=== PATIENT | male | born 1945 | race Caucasian/White ===

== ENCOUNTER 2017-03-17 06:49 | Day surgery (SDC) | payer MEDICARE, OTHER ==
[~2017-03-17 06:49] MED LIST: RINGER'S SOLUTION,LACTATED 1,000 ML IV PRN
[2017-03-17] MEDS ORDERED: RINGER'S SOLUTION,LACTATED 1,000 ML IV ONE (07:20)
[2017-03-17] MEDS ORDERED: PANTOPRAZOLE SODIUM 40 MG in NORMAL SALINE 100 ML IV ONE (08:11)
[2017-03-17] MEDS ORDERED: RINGER'S SOLUTION,LACTATED 1,000 ML IV PRN (08:11)
[2017-03-17] MEDS ORDERED: PANTOPRAZOLE SODIUM 40 MG/100 ML PIGGYBACK IV ONE (08:24)
--- NOTE | 2017-03-17 08:44 | OR ---
Operative Report - Dictated Report Narrative: Operative Report Date of operation: 03/17/2017 Preoperative diagnosis: Dysphagia. Odynophagia. Abnormal esophagram Postoperative diagnosis: Severe esophagitis. Gastropathy. Pathology CLOtest pending. Operation: EGD with biopsies Surgeon: Dr Berger Anesthesia: BONILLA CORTEZ CRNA Indications for procedure: The patient is a 71-year-old male referred by Dr. Gonzales. The patient has odynophagia and progressive dysphagia over solid foods. Esophagram demonstrates distal esophageal narrowing Findings: Severe erosive esophagitis beginning at 28 cm. No esophageal stenosis. Gastropathy. (Pathology and CLOtest pending) Narrative of procedure: The patient was identified preoperatively, and prior to the administration of anesthetic a multidisciplinary timeout was observed With the patient in the recumbent position, a bite-block was placed, intravenous sedation administered, and the patient's eyes covered with a towel. The flexible fiberoptic gastroscope was advanced into the posterior pharynx which appeared normal. The supraglottic larynx appeared normal. The cords appeared normal, moved well, and opposed in the midline. The scope was advanced under direct vision into the proximal esophagus which appeared normal. The esophagus appeared freely distensible with normal mucosa down to approximately 28 cm where severe circumferential erosive esophagitis with exudate was encountered. There was normal esophageal mucosa distal to this down to the gastroesophageal junction which was freely distensible. The scope was advanced into the stomach which was insufflated with air. There was pain and gastric erythema with significant erythema on several gastric folds. A retroflex view of the gastric fundus revealed no additional lesions but did show the irritated mucosa well. The pylorus appeared patent. The scope was advanced into the duodenal bulb which appeared normal. The scope was advanced further to the horizontal portion of the duodenum which appeared normal, specifically the villous architecture appeared well preserved and clear bile was present. The scope was slowly withdrawn through the duodenal bulb with confirmation that no active ulcer was present. The scope was withdrawn into the stomach and financial sales representative biopsies of gastric mucosa obtained for CLOtest and pathology. The biopsy sites were seen to be hemostatic. The insufflated air was removed from the stomach, and the scope withdrawn into the esophagus and biopsies were obtained from the areas of erosive esophagitis. Biopsy sites were seen to be hemostatic. The scope was withdrawn from the patient, and the procedure terminated. The patient tolerated the anesthetic and procedure well without complication and was transferred back to the ambulatory surgery area awake and in stable condition. The patient remained stable throughout a period of postoperative observation, was able to tolerate po intake, and was up without assistance. I shared the operative findings with him and his , and he was given copies of the photographs which appear in the medical record. He was given a single dose of Protonix 40 mg IV prior to discharge. He was discharged home with instructions not to engage in hazardous activity today, but may return to normal activity tomorrow and advance diet as tolerated. He is to continue medications as listed in the history and physical exam, specifically he is to resume Coumadin today with a recheck of his INR on 03/20/2017. I made arrangements to contact the patient with the biopsy reports and will make further recommendation based upon that result. Reviewed and electronically signed
[2017-03-17 09:11] VITALS: BP 147/60
== END 2017-03-17 06:50 | disposition home or self-care (01) ==
LOC: AMB 06:49
PROVIDERS: ATTEND Surgery
PROC: 0DB68ZX Excision of Stomach, Via Natural or Artificial Opening Endoscopic, Diagnostic (ICD-10-PCS; 2017-03-17)
PROC: 0DB58ZX Excision of Esophagus, Via Natural or Artificial Opening Endoscopic, Diagnostic (ICD-10-PCS; principal; 2017-03-17 07:30)
DX: K21.0 Gastro-esophageal reflux disease with esophagitis (principal); K29.70 Gastritis, unspecified, without bleeding; E11.22 Type 2 diabetes mellitus with diabetic chronic kidney disease; I12.9 Hypertensive chronic kidney disease with stage 1 through stage 4 chronic kidney disease, or unspecified chronic kidney disease; N18.3 Chronic kidney disease, stage 3 (moderate); E78.5 Hyperlipidemia, unspecified; I48.91 Unspecified atrial fibrillation; G47.33 Obstructive sleep apnea (adult) (pediatric); Z87.11 Personal history of peptic ulcer disease; E66.9 Obesity, unspecified; Z68.34 Body mass index [BMI] 34.0-34.9, adult

== ENCOUNTER 2018-01-13 12:33 | Inpatient (IN) | payer MEDICARE, OTHER ==
[2018-01-13 13:33] LABS: Hematocrit 26.5 % (42.0-52.0); Hemoglobin 8.5 gm/dL (13.5-18.0); Mean Corpuscular Hemoglobin 30.8 pg (27-31); Mean Corpuscular Hgb Conc 32.1 g/dl (32-36); Mean Platelet Volume 9.8 fl (8-11.3); Neutrophil # 9.7 K/mm3 (1.3-6.0); Neutrophil % 86.7 % (42-75.0); Platelet Count 254 K/mm3 (150-450); Red Blood Count 2.76 M/mm3 (4.7-6.0); Red Cell Distribution Width 15.9 % (11.5-14.0); White Blood Count 11.2 K/mm3 (4.0-10.5)
[2018-01-13 13:44] LABS: BUN/Creatinine Ratio 17.5 (9.0-21.6)
[2018-01-13 13:45] LABS: Anion Gap 11.4 mmol/L (6.8-13.8); Bilirubin, Total 0.8 mg/dL (0.0-1.1); Ca. Corrected For Albumin 9.7 mg/dL (8.4-10.2); Calcium * 8.4 mg/dL (7.9-10.9); Carbon Dioxide 28.1 mmol/L (24-32.6); Potassium 4.5 mmol/L (3.4-4.6); Total Protein 6.7 gm/dL (6.2-8.2)
[2018-01-13] MEDS ORDERED: SENNOSIDES/DOCUSATE SODIUM 1 TAB TABLET PO PRN (14:08)
[2018-01-13] MEDS: BISACODYL 10 MG SUPP.RECT RC SCH (16:29)
[2018-01-13] MEDS: POLYETHYLENE GLYCOL 3350 119 GM BTL PO SCH (16:29)
[2018-01-13 17:01] LABS: Prothrombin Time (Patient) 38.6 Seconds (9.0-11.0)
[2018-01-13 17:12] LABS: INR 3.81 INR (0.90-1.10)
[2018-01-13] MEDS: INSULIN LISPRO 100 UNITS/ML VIAL SC SCH (17:23)
--- NOTE | 2018-01-13 19:28 | PN ---
Dictated Progress Note - Date and Time Seen: Date: 01/13/18 Time: 19:27 - Progress Note Narrative: Vital Signs - Last Taken Temp 37.3 C 01/13/18 14:04 Pulse 88 01/13/18 14:32 Resp 19 01/13/18 14:04 BP 154/66 H 01/13/18 14:04 Pulse Ox 99 01/13/18 14:04 Abnormal/Pending Laboratory Last 24 HRS 01/13/18 01/13/18 01/13/18 16:30 12:51 12:51 WBC 11.2 H RBC 2.76 L Hgb 8.5 L Hct 26.5 L RDW 15.9 H Immature Gran % (Auto) 0.50 H Immature Gran # (Auto) 0.06 H Neutrophils % 86.7 H Lymphocytes % 5.5 L Neutrophils # 9.7 H Lymphocytes # 0.61 L PT 38.6 H INR (Anticoag Therapy) 3.81 H BUN 33 H D Creatinine 1.89 H D Est GFR (Non-Af Amer) 38 L D Random Glucose 120 H Albumin 2.0 L The patient has an unused gastrostomy tube. I was delayed in the operating room until after the patient been put back to bed and he is currently sleeping. His records were reviewed. I will examine the patient in the morning regarding removal of the tube.
[2018-01-13] MEDS ORDERED: ALBUTEROL SULFATE/IPRATROPIUM 3 ML NEBU IH PRN (20:32)
[2018-01-13] MEDS ORDERED: NITROGLYCERIN 0.4 MG/TAB BTL SL PRN (20:32)
[2018-01-13] MEDS ORDERED: ALPRAZolam 0.25 MG TABLET PO PRN (20:32)
[2018-01-13] MEDS ORDERED: POLYVINYL ALCOHOL 150 DROP BTL OP PRN (20:32)
[2018-01-13] MEDS ORDERED: CALCIUM CARBONATE 500 MG TAB.CHEW PO PRN (20:32)
--- NOTE | 2018-01-13 20:32 | HP ---
Chief Complaint - Chief Complaint Date of Service: 01/13/18 Time of Service: 15:00 Chief Complaint: SOB, chest pain, low grade fever, confusion History of Present Illness: The patient presented to my office today to see me in clinic on multiple generalized symptoms including shortness of breath, fever (low-grade), confusion, lethargy. The patient had a three-vessel CABG on 10/26/2016 at the [facility]. He unfortunately had an extremely difficult postoperative recovery which included tracheostomy and PEG tube placement. At this time, his tracheostomy has previously been decannulated although his PEG tube still remains. His PEG tube has not been used in approximately 4 weeks. After his admission at [facility] [place] [facility] he was transferred to an LTAC where he stayed for a few weeks before being transferred to [place] for acute inpatient rehabilitation. He was discharged from acute inpatient rehabilitation and transferred to [facility] in [place], [place] on 01/11/2018. Medical History (Last Reviewed 01/13/18 @ 15:11 by Paola Hammer RN) Left lower lobe pneumonia (Acute) GERD (gastroesophageal reflux disease) (Chronic) Atrial fibrillation (Chronic) Coronary artery disease (Acute) Pneumonia Atrial fibrillation Onset Date: 03/15/12 [facility], started on Coumadin today. CKD stage 3 due to type 2 diabetes mellitus Onset Date: 12/03/15 Diabetes Onset Date: ~1995 Type 2 Diabetic macular edema Onset Date: Unknown Diabetic retinopathy Onset Date: ~2008 Essential hypertension Onset Date: ~1995 GERD (gastroesophageal reflux disease) Onset Date: 04/20/17 Heart disease Onset Date: ~1969 Szszn-Jmfrwvpnl-Azoul syndrome Hyperlipidemia Onset Date: ~1995 Hypertension Obesity (BMI 30.0-34.9) Onset Date: 12/03/15 Class I Peptic ulcer disease Onset Date: ~1995 Sleep apnea Onset Date: 01/24/16 Qekvn-Qtksqpqzi-Ijxil syndrome Onset Date: ~1972 Longstanding hx of palpitations with questionable remote hx of WPW. Pt apparently was enrolled in a WPW research study at the [facility] but details/records are N/A. 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 He denies ever having any ablation procedure. Cataract, bilateral Dupuytren's contracture Onset Date: ~1995 Surgical History: Surgical History (Last Reviewed 01/13/18 @ 15:11 by Paola Hammer RN) S/P triple vessel bypass (Chronic) History of esophagogastroduodenoscopy (EGD) (Resolved) w/biopsy. 1995 Dr. Jonnathan COLON. 03/17/17 Dr. Berger - Harley negative. Esophagitis,gastritis. History of detached retina repair (Resolved) 1999 History of cardioversion 2011 History of echocardiogram 10/09/15 Normal LV size. Severe concentric LVH. Low normal LV systolic function with EF 54%. No RWMA. Normal RV side. Normal RV systolic function. No significant valvular abnormalities. History of stress test 06/2015 [facility] - mod-sized inferior wall and small apical perfusion defects, both reversible on rest images, consistent with ischemia. EF 60%. Hx of cataract surgery 2008 right; 2009 left Hx of colonoscopy 08/01/11 Dr. Berger - dillon S/P triple vessel bypass Onset Date: 10/26/17 with complications; diaylysis, trach Family History: Family History (Last Reviewed 01/13/18 @ 15:11 by Paola Hammer RN) Father , Age 73 Heart disease CHF (congestive heart failure) Diabetes IDDM Mother , Age 70 Peritonitis Toxic shock syndrome After abdominal surgery Brother Diabetes IDDM Cancer Renal. Lost 1 kidney. Social History: Patient Lives[place]Resources [facility] [place] Utilized Occupation Retired Preferred Language Vincentian Smoking Status Never smoker Have you smoked in the past 12 No months Abuse History No History of abuse Psych History No pertinent hx Review Of Systems (GEN) - Review of Systems Generalized/Overall Review: Present: Weakness, Chills, Fever, Fatigue EENTM: Present: No Symptoms Reported Respiratory: Present: Cough, Shortness of Breath Cardiac: Present: Edema Abdominal: Present: Nausea, Vomiting Genitourinary: Present: No Symptoms Reported Skin: Present: Other Misc: All systems neg except as marked Immunizations: IMMUNIZATION HX Immunizations Up to Date Yes History of Influenza Vaccine Yes Hx Pneumococcal Vaccination Yes Allergies/Adverse Reactions: Allergies Allergy/AdvReac Type Severity Reaction Status Date / Time simvastatin AdvReac Mild extreme Verified 01/13/18 15:11 body aches Home Medications: HOME MEDICATIONS Docusate Sodium [Colace] 100 mg PO BID 12/12/15 [Last Taken 01/13/18 07:00] Nitroglycerin [Nitrostat] 0.4 mg SUBLINGUAL [id number] PRN 12/12/15 [Last Taken Unknown] Atorvastatin Calcium [Lipitor] 40 mg PO DAILY 03/06/17 [Last Taken 01/12/18 20:00] Aspirin [Aspirin Enteric Coated] 81 mg PO DAILY 03/16/17 [Last Taken 01/13/18 07:00] Insulin NPH Human Recom [Novolin N] 50 unit SQ BID 03/16/17 [Last Taken Unknown] Insulin Regular Human Rec [Novolin R] 20 units SQ DAILY 03/16/17 [Last Taken Unknown] Multivitamins [Multivitamin Emory] 1 cap PO DAILY 03/16/17 [Last Taken Unknown] Warfarin Sodium [Coumadin] 2.5 mg PO DAILY 03/16/17 [Last Taken 01/12/18 17:00] Insulin Lispro [Humalog] See Protocol SQ ACHS 01/13/18 [Last Taken Unknown] acetaminophen 325 mg tablet 650 mg PO Q4H PRN tab 01/13/18 [Last Taken Unknown] alprazolam 0.25 mg tablet 0.25 mg PO Q6H PRN tab 01/13/18 [Last Taken Unknown] amiodarone 200 mg tablet 200 mg PO DAILY 01/13/18 [Last Taken 01/13/18 07:00] calcium carbonate 200 mg calcium (500 mg) chewable tablet 200 mg PO TID tab 01/13/18 [Last Taken 01/13/18 07:00] carboxymethylcellulose sodium 0.5 % eye drops 1 drp OP TID PRN 01/13/18 [Last Taken Unknown] escitalopram 20 mg tablet 10 mg PO DAILY 01/13/18 [Last Taken 01/13/18 07:00] famotidine 20 mg tablet 20 mg PO BID 01/13/18 [Last Taken 01/13/18 07:00] furosemide 40 mg tablet 40 mg PO DAILY 01/13/18 [Last Taken 01/13/18 07:00] guaifenesin ER 1,200 mg tablet, extended release 12 hr 1,200 mg PO Q12H 01/13/18 [Last Taken 01/13/18 07:00] insulin glargine (U- 100) 100 unit/mL subcutaneous solution 20 unit SUBCUT QAM ml 01/13/18 [Last Taken 01/13/18 07:00] insulin lispro protamine-lispro 100 unit/mL (50-50) subcutaneous pen 5 unit SUBCUT .COMPLEX 10/17/18 [Last Taken Unknown] ipratropium-albuterol 0.5 mg-3 mg(2.5 mg base)/3 mL nebulization soln 3 ml IH Q2H PRN 01/13/18 [Last Taken Unknown] ketorolac 0.5 % eye drops 1 drp OP QID 01/13/18 [Last Taken 01/13/18 12:00] levothyroxine 25 mcg capsule 25 mcg PO DAILY 01/13/18 [Last Taken 01/13/18 07:00] metoprolol tartrate 25 mg tablet 25 mg PO BID 01/13/18 [Last Taken 01/13/18 07:00] ondansetron HCl 4 mg tablet 4 mg PO DAILY 01/13/18 [Last Taken 01/12/18 17:00] ondansetron HCl 4 mg tablet 4 mg PO Q6H PRN 01/13/18 [Last Taken Unknown] oxymetazoline 0.05 % nasal spray 2 spray KARLIE Q12H PRN 01/13/18 [Last Taken Unknown] pantoprazole 40 mg tablet,delayed release 40 mg PO DAILY 01/13/18 [Last Taken 01/13/18 07:00] potassium chloride ER 10 mEq tablet,extended release(part/cryst) 10 meq PO DAILY 01/13/18 [Last Taken 01/13/18 07:00] sennosides 8.6 mg tablet 8.6 mg PO BID PRN 01/13/18 [Last Taken Unknown] tamsulosin 0.4 mg capsule 0.4 mg PO DAILY 01/13/18 [Last Taken 01/13/18 07:00] tramadol 50 mg tablet 50 mg PO Q6H PRN 01/13/18 [Last Taken Unknown] Exam - Exam Vital Signs: Vital Signs - Last Taken Temp 37.3 C 01/13/18 14:04 Pulse 88 01/13/18 14:32 Resp 19 01/13/18 14:04 BP 154/66 H 01/13/18 14:04 Pulse Ox 99 01/13/18 14:04 Constitutional: Present: Alert, Cooperative, Other - Appears uncomfortable, acute on chronically ill, confused ENT Exam: Present: hearing grossly normal, moist mucous membranes Eye Exam: bilateral eye: conjunctivae pale Back Exam: Present: no CVA tenderness Respiratory: Present: other - Coarse breath sounds bilaterally Cardiovascular/Chest: Present: irregularly irregular Abdomen: Present: soft, nontender, other - PEG tub present with serosang and purluent drainage, hypoactive Extremity: Present: lower extremity edema - 2+ edema left>right Skin Exam: Present: pallor, other - Sternotomy incision with surrounding erythema, area of erythema outlined on admission, increased warmth over the area as well, no fluctuance or open areas appreciated Neurologic: Present: other - Tremors, downward nystagmus, upper and lower extremity weakness Eye contact: Present: cooperative Diagnostic Studies: Abnormal Lab Results 01/13/18 01/13/18 01/13/18 Range/Units 12:51 12:51 16:30 WBC 11.2 H (4.0-10.5) K/mm3 RBC 2.76 L (4.7-6.0) M/mm3 Hgb 8.5 L (13.5-18.0) gm/dL Hct 26.5 L (42.0-52.0) % RDW 15.9 H (11.5-14.0) % Immature Gran % (Auto) 0.50 H (0.001-0.429) % Immature Gran # (Auto) 0.06 H (0.000-0.0310) K/mm3 Neutrophils % 86.7 H (42-75.0) % Lymphocytes % 5.5 L (20-51) % Neutrophils # 9.7 H (1.3-6.0) K/mm3 Lymphocytes # 0.61 L (1.5-3.5) k/mm3 PT 38.6 H (9.0-11.0) Seconds INR (Anticoag Therapy) 3.81 H (0.90-1.10) INR BUN 33 H D (6-23) mg/dL Creatinine 1.89 H D (0.4-1.4) mg/dL Est GFR (Non-Af Amer) 38 L D (60-130) mL/min Random Glucose 120 H (70-110) mg/dL Albumin 2.0 L (3.4-5.0) gm/dl Laboratory Results WBC 11.2 K/mm3 (4.0-10.5) H 01/13/18 12:51 RBC 2.76 M/mm3 (4.7-6.0) L 01/13/18 12:51 Hgb 8.5 gm/dL (13.5-18.0) L 01/13/18 12:51 Hct 26.5 % (42.0-52.0) L 01/13/18 12:51 MCV 96.0 fl (78-100) 01/13/18 12:51 MCH 30.8 pg (27-31) 01/13/18 12:51 MCHC 32.1 g/dl (32-36) 01/13/18 12:51 RDW 15.9 % (11.5-14.0) H 01/13/18 12:51 Plt Count 254 K/mm3 (150-450) 01/13/18 12:51 MPV 9.8 fl (8-11.3) 01/13/18 12:51 Immature Gran % (Auto) 0.50 % (0.001-0.429) H 01/13/18 12:51 Immature Gran # (Auto) 0.06 K/mm3 (0.000-0.0310) H 01/13/18 12:51 Neutrophils % 86.7 % (42-75.0) H 01/13/18 12:51 Lymphocytes % 5.5 % (20-51) L 01/13/18 12:51 Monocytes % 6.6 % (0.0-9) 01/13/18 12:51 Eosinophils % 0.3 % (0.0-3.0) 01/13/18 12:51 Basophils % 0.4 % (0.0-1.0) 01/13/18 12:51 Nucleated RBC % 0.0 k/mm3 (0-1) 01/13/18 12:51 Neutrophils # 9.7 K/mm3 (1.3-6.0) H 01/13/18 12:51 Lymphocytes # 0.61 k/mm3 (1.5-3.5) L 01/13/18 12:51 Monocytes # 0.7 k/mm3 (0.0-1.0) 01/13/18 12:51 Eosinophils # 0.0 k/mm3 (0.0-0.7) 01/13/18 12:51 Absolute Basophils 0.0 k/mm3 (0.0-0.1) 01/13/18 12:51 PT 38.6 Seconds (9.0-11.0) H 01/13/18 16:30 INR (Anticoag Therapy) 3.81 INR (0.90-1.10) H 01/13/18 16:30 Sodium 133 mmol/L (132-142) 01/13/18 12:51 Plasma Sodium 133 mmol/L (130-142) 01/13/18 12:51 Potassium 4.5 mmol/L (3.4-4.6) 01/13/18 12:51 Chloride 98 mmol/L (97-106) 01/13/18 12:51 Carbon Dioxide 28.1 mmol/L (24-32.6) 01/13/18 12:51 Anion Gap 11.4 mmol/L (6.8-13.8) 01/13/18 12:51 BUN 33 mg/dL (6-23) H D 01/13/18 12:51 Creatinine 1.89 mg/dL (0.4-1.4) H D 01/13/18 12:51 Est GFR (Non-Af Amer) 38 mL/min (60-130) L D 01/13/18 12:51 BUN/Creatinine Ratio 17.5 (9.0-21.6) 01/13/18 12:51 Random Glucose 120 mg/dL (70-110) H 01/13/18 12:51 Calcium 8.4 mg/dL (7.9-10.9) 01/13/18 12:51 Calcium Adj for Albumin 9.7 mg/dL (8.4-10.2) 01/13/18 12:51 Total Bilirubin 0.8 mg/dL (0.0-1.1) 01/13/18 12:51 AST 26 U/L (0-48) 01/13/18 12:51 ALT 20 U/L (19-67) 01/13/18 12:51 Alkaline Phosphatase 67 U/L (50-170) 01/13/18 12:51 Total Protein 6.7 gm/dL (6.2-8.2) 01/13/18 12:51 Albumin 2.0 gm/dl (3.4-5.0) L 01/13/18 12:51 Procalcitonin 0.16 ng/mL (0.05-0.50) 01/13/18 12:51 Assessment/Plan - Narrative Narrative: Direct admit from my office. I'm not sure exactly what is going on with the patient nor am I sure the precise etiology of all his signs and symptoms on presentation. Further evaluation and workup ordered including chest x-ray, UA with culture if indicated, CBC, CMP, proalcitonin, BNP, blood cultures 2. Erythema surrounding sternotomy wound outlined on admission. Consult placed to address healing buttock pressure wound as well. General surgery consulted to address PEG tube to see if we can completely discontinue it and pull it. Hold off on antibiotics for now as we're not determined whether the patient truly has an infection and if he does what the source is. Await results of workup and further recommendations and orders pending results. - Assessment/Plan (1) Confusion Problem: Acute (2) S/P CABG (coronary artery bypass graft) Problem: Chronic
[2018-01-13] MEDS ORDERED: FUROSEMIDE 10 MG/ML VIAL IV ONE (21:23)
[2018-01-13] MEDS ORDERED: ROSUVASTATIN CALCIUM 10 MG TABLET ONE (21:39)
[2018-01-13] MEDS: RANITIDINE HCL 15 MG/ML BTL PO SCH (21:46)
[2018-01-13] MEDS: METOPROLOL TARTRATE 25 MG TABLET PO SCH (21:48)
[2018-01-13] MEDS: ROSUVASTATIN CALCIUM 20 MG TABLET PO SCH (21:49)
[2018-01-13] MEDS: KETOROLAC TROMETHAMINE OP SCH (21:55)
[2018-01-13] MEDS: SENNOSIDES/DOCUSATE SODIUM 1 TAB TABLET PO SCH (22:36)
[2018-01-14] MEDS: IRON SUCROSE COMPLEX 100 MG in NORMAL SALINE 100 ML IV SCH ×2 (00:02→22:23)
[2018-01-14 01:50] LABS: Urine Bilirubin Negative (NEGATIVE); Urine Blood 250 /ul (NEGATIVE); Urine Ketone Negative (NEGATIVE); Urine Nitrite Negative (NEGATIVE); Urine Protein Negative (NEGATIVE); Urine Urobilinogen Normal (NORMAL)
[2018-01-14 01:59] LABS: Urine Amorphous Sediment Few - 1+ (NONE-FEW); Urine Appearance Slightly Cloudy (CLEAR); Urine Bacteria 2+; Urine Color Yellow
[2018-01-14 05:32] LABS: Hematocrit 26.2 % (42.0-52.0); Hemoglobin 8.3 gm/dL (13.5-18.0); Mean Cell Volume 95.3 fl (78-100); Mean Corpuscular Hemoglobin 30.2 pg (27-31); Mean Corpuscular Hgb Conc 31.7 g/dl (32-36); Mean Platelet Volume 9.4 fl (8-11.3); Neutrophil # 8.1 K/mm3 (1.3-6.0); Neutrophil % 81.7 % (42-75.0); Platelet Count 246 K/mm3 (150-450); Red Blood Count 2.75 M/mm3 (4.7-6.0)
[2018-01-14 05:45] LABS: Prothrombin Time (Patient) 41.5 Seconds (9.0-11.0)
[2018-01-14 05:49] LABS: INR 4.09 INR (0.90-1.10)
[2018-01-14 05:52] LABS: Albumin * 1.9 gm/dl (3.4-5.0); Anion Gap 7.7 mmol/L (6.8-13.8); BUN/Creatinine Ratio 17.8 (9.0-21.6); Bilirubin, Total 0.8 mg/dL (0.0-1.1); CKMB 1.4 ng/mL (0.0-9.0); Ca. Corrected For Albumin 9.9 mg/dL (8.4-10.2); Calcium * 8.5 mg/dL (7.9-10.9); Carbon Dioxide 30.3 mmol/L (24-32.6); Total Protein 6.4 gm/dL (6.2-8.2)
[2018-01-14 05:53] LABS: Troponin I 0.018 ng/mL (0.00-0.10)
[2018-01-14] MEDS ORDERED: LEVOTHYROXINE SODIUM 25 MCG TABLET PO SCH (07:00)
[2018-01-14] MEDS: INSULIN LISPRO 100 UNITS/ML VIAL SC SCH ×3 (07:15→17:40)
[2018-01-14] MEDS: LEVOTHYROXINE SODIUM 75 MCG TABLET PO SCH (08:09)
[2018-01-14] MEDS ORDERED: BUMETANIDE 0.25 MG/ML VIAL IV PRN (08:45)
[2018-01-14] MEDS ORDERED: INSULIN GLARGINE,HUM.REC.ANLOG 100 UNITS/ML VIAL SC SCH (09:00)
[2018-01-14] MEDS ORDERED: ESCITALOPRAM OXALATE 10 MG TAB PO SCH (09:00)
[2018-01-14] MEDS ORDERED: FUROSEMIDE 40 MG TABLET PO SCH (09:00)
[2018-01-14] MEDS ORDERED: WARFARIN SODIUM 5 MG TABLET PO SCH (09:00)
[2018-01-14] MEDS ORDERED: AMIODARONE HCL 200 MG TABLET PO SCH (09:00)
[2018-01-14] MEDS: SENNOSIDES/DOCUSATE SODIUM 1 TAB TABLET PO SCH ×3 (10:16→17:37)
[2018-01-14] MEDS: BUMETANIDE 0.25 MG/ML VIAL IV SCH (10:16)
[2018-01-14] MEDS: PANTOPRAZOLE SODIUM 40 MG TABLET.EC PO SCH (10:17)
[2018-01-14] MEDS: POTASSIUM CHLORIDE 10 MEQ TABLET.SA PO SCH (10:17)
[2018-01-14] MEDS: ASPIRIN 81 MG TABLET.DR PO SCH (10:17)
[2018-01-14] MEDS: FERROUS SULFATE 325 MG TABLET PO SCH ×3 (10:17→17:35)
[2018-01-14] MEDS: MULTIVITAMINS 1 CAP CAPSULE PO SCH (10:17)
[2018-01-14] MEDS: METOPROLOL TARTRATE 25 MG TABLET PO SCH ×2 (10:18→20:12)
[2018-01-14] MEDS: KETOROLAC TROMETHAMINE OP SCH ×4 (10:27→20:14)
[2018-01-14] MEDS: RANITIDINE HCL 15 MG/ML BTL PO SCH ×2 (10:28→20:13)
[2018-01-14] MEDS: POLYETHYLENE GLYCOL 3350 119 GM BTL PO SCH (10:30)
[2018-01-14] MEDS: INSULIN DETEMIR 100 UNITS/ML VIAL SC SCH ×2 (10:31→22:02)
[2018-01-14] MEDS: BISACODYL 10 MG SUPP.RECT RC SCH (13:31)
--- NOTE | 2018-01-14 15:01 | CONS ---
HPI - General Date of Service: 01/14/18 Source: patient Exam Limitations: no limitations - History of Present Illness Initial Comments: Patient is a 72 year old male, recently admitted to the hospital due to left lower lobe pneumonia. [facility] regarding multiple ulcers, located on the left toe, left lower leg and right buttock. The patient's medical history includes, atrial fibrillation, chronic kidney disease stage III, coronary artery disease, type II diabetes, hypertension, GERD, hyperlipidemia and sleep apnea. He states he underwent a triple bypass in September 2017, and was in a coma for two months following the procedure. The patient is unclear of his current residence. Regarding the ulcers, the patient states that he is unsure of how or when the toe ulcer appeared. He is unclear of the duration of the toe and buttock ulcers. He denies difficulty with non-healing ulcers in the past. Timing/Duration: other - several months Allergies/Adverse Reactions: Allergies simvastatin Adverse Reaction (Mild, Verified 01/13/18 15:11) extreme body aches Home Medications: Home Medications Medication Instructions Recorded Last Taken Docusate Sodium [Colace] 100 mg PO BID 12/12/15 01/13/18 07:00 Nitroglycerin [Nitrostat] 0.4 mg SUBLINGUAL [id number] PRN 12/12/15 Unknown Atorvastatin Calcium [Lipitor] 40 mg PO DAILY 03/06/17 01/12/18 20:00 Aspirin [Aspirin Enteric Coated] 81 mg PO DAILY 03/16/17 01/13/18 07:00 Insulin NPH Human Recom [Novolin N] 50 unit SQ BID 03/16/17 Unknown Insulin Regular Human Rec [Novolin 20 units SQ DAILY 03/16/17 Unknown R] Multivitamins [Multivitamin Emory] 1 cap PO DAILY 03/16/17 Unknown Warfarin Sodium [Coumadin] 2.5 mg PO DAILY 03/16/17 01/12/18 17:00 Insulin Lispro [Humalog] See Protocol SQ ACHS 01/13/18 Unknown acetaminophen 325 mg tablet 650 mg PO Q4H PRN tab 01/13/18 Unknown alprazolam 0.25 mg tablet 0.25 mg PO Q6H PRN tab 01/13/18 Unknown amiodarone 200 mg tablet 200 mg PO DAILY 01/13/18 01/13/18 07:00 calcium carbonate 200 mg calcium 200 mg PO TID tab 01/13/18 01/13/18 07:00 (500 mg) chewable tablet carboxymethylcellulose sodium 0.5 1 drp OP TID PRN 01/13/18 Unknown % eye drops escitalopram 20 mg tablet 10 mg PO DAILY 01/13/18 01/13/18 07:00 famotidine 20 mg tablet 20 mg PO BID 01/13/18 01/13/18 07:00 furosemide 40 mg tablet 40 mg PO DAILY 01/13/18 01/13/18 07:00 guaifenesin ER 1,200 mg tablet, 1,200 mg PO Q12H 01/13/18 01/13/18 07:00 extended release 12 hr insulin glargine (U- 100) 100 20 unit SUBCUT QAM ml 01/13/18 01/13/18 07:00 unit/mL subcutaneous solution insulin lispro protamine-lispro 5 unit SUBCUT .COMPLEX 01/13/18 Unknown 100 unit/mL (50-50) subcutaneous pen ipratropium-albuterol 0.5 mg-3 3 ml IH Q2H PRN 01/13/18 Unknown mg(2.5 mg base)/3 mL nebulization soln ketorolac 0.5 % eye drops 1 drp OP QID 01/13/18 01/13/18 12:00 levothyroxine 25 mcg capsule 25 mcg PO DAILY 01/13/18 01/13/18 07:00 metoprolol tartrate 25 mg tablet 25 mg PO BID 01/13/18 01/13/18 07:00 ondansetron HCl 4 mg tablet 4 mg PO DAILY 01/13/18 01/12/18 17:00 ondansetron HCl 4 mg tablet 4 mg PO Q6H PRN 01/13/18 Unknown oxymetazoline 0.05 % nasal spray 2 spray KARLIE Q12H PRN 01/13/18 Unknown pantoprazole 40 mg tablet,delayed 40 mg PO DAILY 01/13/18 01/13/18 07:00 release potassium chloride ER 10 mEq 10 meq PO DAILY 01/13/18 01/13/18 07:00 tablet,extended release(part/cryst) sennosides 8.6 mg tablet 8.6 mg PO BID PRN 01/13/18 Unknown tamsulosin 0.4 mg capsule 0.4 mg PO DAILY 01/13/18 01/13/18 07:00 tramadol 50 mg tablet 50 mg PO Q6H PRN 01/13/18 Unknown Procedures Colonoscopy (07/31/10) Excision of Esophagus, Via Natural or Artificial Opening Endoscopic, Diagnostic (03/17/17) Excision of Stomach, Via Natural or Artificial Opening Endoscopic, Diagnostic (03/17/17) Repair Left Hand Skin, External Approach (02/22/15) Medications - Medications Current Medications: Current Medications Amiodarone HCl (Cordarone) 200 mg PO DAILY [facility] Stop: 02/13/18 09:01 Last Admin: 01/14/18 10:17 Dose: 200 mg Aspirin (Aspirin Enteric Coated) 81 mg PO DAILY [facility] Stop: 02/13/18 09:01 Last Admin: 01/14/18 10:17 Dose: 81 mg Bisacodyl (Dulcolax Suppository) 10 mg RC DAILY [facility] Stop: 02/12/18 15:31 Last Admin: 01/14/18 13:31 Dose: Not Given Bumetanide (Bumex) 1 mg IV ONCE PRN PRN Reason: GIVE AFTER UNIT OF PRBCs Stop: 02/13/18 08:46 Last Admin: 01/14/18 14:06 Dose: 1 mg Bumetanide (Bumex) 1 mg IV DAILY [facility] Stop: 02/13/18 09:01 Last Admin: 01/14/18 10:16 Dose: 1 mg Escitalopram Oxalate (Lexapro) 10 mg PO DAILY [facility] Stop: 02/13/18 09:01 Last Admin: 01/14/18 10:18 Dose: 10 mg Ferrous Sulfate (Ferrous Sulfate) 325 mg PO TIDWM [facility]RAHIMA Stop: 02/13/18 09:01 Last Admin: 01/14/18 13:31 Dose: 325 mg Iron Sucrose 100 mg/ Sodium (Chloride) 105 mls @ 200 mls/hr IV HS [facility] Stop: 02/12/18 22:01 Last Infusion: 01/14/18 00:34 Dose: Infused Ceftriaxone Sodium 1,000 mg/ (Dextrose/Water) 100 mls @ 200 mls/hr IV Q24H [facility]; Protocol Stop: 02/13/18 07:01 Last Infusion: 01/14/18 08:36 Dose: Infused Insulin Detemir (Levemir) 8 units SC Q12H [facility]RAHIMA Stop: 02/13/18 09:01 Last Admin: 01/14/18 10:31 Dose: 8 units Insulin Human Lispro (Humalog) 0 units SC ACINS [facility]; Protocol Stop: 02/12/18 17:01 Last Admin: 01/14/18 12:33 Dose: 2 units Ketorolac Tromethamine (Acular) 1 drop OP QID [facility]IM[facility] Stop: 02/12/18 21:01 Last Admin: 01/14/18 13:32 Dose: 1 drop Levothyroxine Sodium (Synthroid) 75 mcg PO DAILY@0700 [facility] Stop: 02/13/18 07:01 Last Admin: 01/14/18 08:09 Dose: 75 mcg Metoprolol Tartrate (Lopressor) 25 mg PO BID [facility] Stop: 02/12/18 21:01 Last Admin: 01/14/18 10:18 Dose: 25 mg Multivitamins/Folic Acid (Multivitamin Emory) 1 cap PO DAILY [facility] Stop: 02/13/18 09:01 Last Admin: 01/14/18 10:17 Dose: 1 cap Pantoprazole Sodium (Protonix) 40 mg PO DAILY [facility] Stop: 02/13/18 09:01 Last Admin: 01/14/18 10:17 Dose: 40 mg Polyethylene Glycol (Miralax) 17 gm PO DAILY [facility] Stop: 02/12/18 15:31 Last Admin: 01/14/18 10:30 Dose: 17 gm Potassium Chloride (Klor-Con 10) 10 meq PO DAILY [facility] Stop: 02/13/18 09:01 Last Admin: 01/14/18 10:17 Dose: 10 meq Ranitidine HCl (Zantac) 150 mg PO BID [facility] Stop: 02/12/18 21:01 Last Admin: 01/14/18 10:28 Dose: 150 mg Rosuvastatin Calcium (Crestor) 20 mg PO HS [facility]RAHIM[facility] Stop: 02/12/18 21:01 Last Admin: 01/13/18 21:49 Dose: 20 mg Senna/Docusate Sodium (Senokot-S) 1 tab PO TID [facility]RAHIMA Stop: 02/12/18 21:46 Last Admin: 01/14/18 13:31 Dose: 1 tab Review of Systems - Review of Systems Narrative: patient is drowsy, and does not answer questions readily. review of systems was difficult. Physical Examination - Exam Vital Signs: Vital Signs - Last Taken Temp 36.7 C 01/14/18 13:57 Pulse 83 01/14/18 13:57 Resp 16 01/14/18 13:57 BP 109/59 01/14/18 13:57 Pulse Ox 98 01/14/18 13:57 O2 Oxygen Delivery Method Room Air Comprehensive Narative: 01/15/18 10:15 patient is sleepy, frequently stops mid sentence and falls back to sleep. ENT Exam: Present: hearing grossly normal Skin Exam: Present: other - the area on the left toe measures ~0.5cm in circumference. large amount of yellow necrosis. small amount of red granulation tissue. no erythema. minimal drainage. the ulcer is currently open to air. the area on the left lower leg measures ~ 1cm in length. completely covered in black escar. no drainage. no erythema or induration. the area on the right buttock is ~ 1.3cm in circumference. reddned, blanchable. no open wound, no drainage. no erythema. - Results and Findings: Lab/Microbiology results last 24 hrs: Abnormal/Pending Laboratory Last 24 HRS 01/14/18 01/14/18 01/14/18 09:09 05:26 05:26 RBC 2.75 L Hgb 8.3 L Hct 26.2 L MCHC 31.7 L RDW 16.0 H Immature Gran % (Auto) 0.50 H Immature Gran # (Auto) 0.05 H Neutrophils % 81.7 H Lymphocytes % 8.4 L Neutrophils # 8.1 H Lymphocytes # 0.84 L PT INR (Anticoag Therapy) BUN Creatinine Est GFR (Non-Af Amer) ALT B-Natriuretic Peptide Albumin Procalcitonin Less than 0.05 L Urine Blood Ur Leukocyte Esterase Urine RBC Urine WBC Urine Bacteria Urine Comment Crossmatch See Detail 01/14/18 01/14/18 01/14/18 05:26 05:26 01:40 RBC Hgb Hct MCHC RDW Immature Gran % (Auto) Immature Gran # (Auto) Neutrophils % Lymphocytes % Neutrophils # Lymphocytes # PT 41.5 H INR (Anticoag Therapy) 4.09 H* BUN 31 H Creatinine 1.74 H Est GFR (Non-Af Amer) 41 L ALT 17 L B-Natriuretic Peptide 90634 H Albumin 1.9 L Procalcitonin Urine Blood 250 H Ur Leukocyte Esterase 75 H Urine RBC 10-25 H Urine WBC 10-25 H Urine Bacteria 2+ H Urine Comment Culture ordered L Crossmatch 01/13/18 16:30 RBC Hgb Hct MCHC RDW Immature Gran % (Auto) Immature Gran # (Auto) Neutrophils % Lymphocytes % Neutrophils # Lymphocytes # PT 38.6 H INR (Anticoag Therapy) 3.81 H BUN Creatinine Est GFR (Non-Af Amer) ALT B-Natriuretic Peptide Albumin Procalcitonin Urine Blood Ur Leukocyte Esterase Urine RBC Urine WBC Urine Bacteria Urine Comment Crossmatch Culture 01/13/18 13:07 Blood Culture - Preliminary Blood NO GROWTH 24 HOURS 01/13/18 12:51 Blood Culture - Preliminary Blood NO GROWTH 24 HOURS 01/13/18 16:30 - Final Nares MRSA Negative - Assessments/Findings (1) Ulcer of lower extremity Diagnosis(s): Due to the amount of necrosis present, recommend using Santyl to the ulcers on the left toe and left lower leg. This will be covered with gauze and secured with tape. The dressings will be changed daily, and the areas washed with soap and water at dressing changes. The buttock ulcer is not opened. Recommend excellent off-loading of the area. The left leg ulcers may benefit from sharps debridement in the future. Thank you for this consult, we would be happy to follow the patient as an out patient. Problem: Acute (2) Diabetic ulcer of toe of left foot Problem: Acute Qualifiers: Diabetes mellitus type: type 2 Non-pressure ulcer stage: limited to breakdown of skin Qualified Code(s): E11.621 - Type 2 diabetes mellitus with foot ulcer; L97.521 - Non-pressure chronic ulcer of other part of left foot limited to breakdown of skin (3) Stage I pressure ulcer of right buttock Problem: Acute (4) Ulcer of left lower leg Problem: Acute Qualifiers: Non-pressure ulcer stage: unspecified non-pressure ulcer stage Qualified Code(s): L97.929 - Non-pressure chronic ulcer of unspecified part of left lower leg with unspecified severity
[2018-01-14 16:17] LABS: Hematocrit 28.7 % (42.0-52.0); Hemoglobin 9.4 gm/dL (13.5-18.0)
[2018-01-14] MEDS: ACETAMINOPHEN 325 MG TABLET PO PRN (17:32)
--- NOTE | 2018-01-14 18:08 | PN ---
Subjective - Date and Time Seen Date: 01/14/18 Time: 09:30 Subjective Narrative: The patient states he feels about the same as he did yesterday when he was admitted. No new issues or concerns per patient. Objective - Review of Systems Generalized/Overall Review: Reports: Weakness, Fatigue Respiratory: Reports: Cough, Shortness of Breath Cardiac: Reports: Edema Abdominal: Reports: Nausea, Vomiting Misc: All systems neg except as marked - Vitals Vitals: Last Vital Signs Temp 37.4 C 01/14/18 17:00 Pulse 92 01/14/18 17:00 Resp 16 01/14/18 17:00 BP 143/68 01/14/18 17:00 Pulse Ox 91 L 01/14/18 17:00 - Abnormal Lab Findings Abnormal Lab Findings: Abnormal Lab Results 01/14/18 01/14/18 01/14/18 Range/Units 01:40 05:26 05:26 RBC (4.7-6.0) M/mm3 Hgb (13.5-18.0) gm/dL Hct (42.0-52.0) % MCHC (32-36) g/dl RDW (11.5-14.0) % Immature Gran % (Auto) (0.001-0.429) % Immature Gran # (Auto) (0.000-0.0310) K/mm3 Neutrophils % (42-75.0) % Lymphocytes % (20-51) % Neutrophils # (1.3-6.0) K/mm3 Lymphocytes # (1.5-3.5) k/mm3 PT 41.5 H (9.0-11.0) Seconds INR (Anticoag Therapy) 4.09 H* (0.90-1.10) INR BUN 31 H (6-23) mg/dL Creatinine 1.74 H (0.4-1.4) mg/dL Est GFR (Non-Af Amer) 41 L (60-130) mL/min ALT 17 L (19-67) U/L B-Natriuretic Peptide 18565 H (5-350) pg/mL Albumin 1.9 L (3.4-5.0) gm/dl Procalcitonin (0.05-0.50) ng/mL Urine Blood 250 H (NEGATIVE) /ul Ur Leukocyte Esterase 75 H (NEGATIVE) /ul Urine RBC 10-25 H (0-5) /hpf Urine WBC 10-25 H (0-5) /hpf Urine Bacteria 2+ H (NONE) Urine Comment Culture ordered L Crossmatch 01/14/18 01/14/18 01/14/18 Range/Units 05:26 05:26 09:09 RBC 2.75 L (4.7-6.0) M/mm3 Hgb 8.3 L (13.5-18.0) gm/dL Hct 26.2 L (42.0-52.0) % MCHC 31.7 L (32-36) g/dl RDW 16.0 H (11.5-14.0) % Immature Gran % (Auto) 0.50 H (0.001-0.429) % Immature Gran # (Auto) 0.05 H (0.000-0.0310) K/mm3 Neutrophils % 81.7 H (42-75.0) % Lymphocytes % 8.4 L (20-51) % Neutrophils # 8.1 H (1.3-6.0) K/mm3 Lymphocytes # 0.84 L (1.5-3.5) k/mm3 PT (9.0-11.0) Seconds INR (Anticoag Therapy) (0.90-1.10) INR BUN (6-23) mg/dL Creatinine (0.4-1.4) mg/dL Est GFR (Non-Af Amer) (60-130) mL/min ALT (19-67) U/L B-Natriuretic Peptide (5-350) pg/mL Albumin (3.4-5.0) gm/dl Procalcitonin Less than 0.05 L (0.05-0.50) ng/mL Urine Blood (NEGATIVE) /ul Ur Leukocyte Esterase (NEGATIVE) /ul Urine RBC (0-5) /hpf Urine WBC (0-5) /hpf Urine Bacteria (NONE) Urine Comment Crossmatch See Detail 01/14/18 Range/Units 16:04 RBC (4.7-6.0) M/mm3 Hgb 9.4 L (13.5-18.0) gm/dL Hct 28.7 L (42.0-52.0) % MCHC (32-36) g/dl RDW (11.5-14.0) % Immature Gran % (Auto) (0.001-0.429) % Immature Gran # (Auto) (0.000-0.0310) K/mm3 Neutrophils % (42-75.0) % Lymphocytes % (20-51) % Neutrophils # (1.3-6.0) K/mm3 Lymphocytes # (1.5-3.5) k/mm3 PT (9.0-11.0) Seconds INR (Anticoag Therapy) (0.90-1.10) INR BUN (6-23) mg/dL Creatinine (0.4-1.4) mg/dL Est GFR (Non-Af Amer) (60-130) mL/min ALT (19-67) U/L B-Natriuretic Peptide (5-350) pg/mL Albumin (3.4-5.0) gm/dl Procalcitonin (0.05-0.50) ng/mL Urine Blood (NEGATIVE) /ul Ur Leukocyte Esterase (NEGATIVE) /ul Urine RBC (0-5) /hpf Urine WBC (0-5) /hpf Urine Bacteria (NONE) Urine Comment Crossmatch - Exam Constitutional: Present: Alert, Oriented x3, Cooperative ENT Exam: Present: hearing grossly normal, moist mucous membranes Respiratory: Present: other - Coarse breath sounds, left>right Cardiovascular/Chest: Present: irregularly irregular Abdomen: Present: soft, nontender, nondistended, other - PEG tube present, hypoactive Extremity: Present: lower extremity edema - left>right Skin Exam: Present: other - Sternotomy incision with surrounding erythema, area of erythema outlined on admission, increased warmth over the area as well, overall erythema improved since admission Neurologic: Present: alert, oriented x 3, other - Tremors, downward nystagmus, upper and lower extremity weakness Appearance: Present: appropriate appearance, appropriate insight, neat, no memory impairment Eye contact: Present: cooperative, good eye contact, normal speech Thoughts: Present: normal thought pattern, no apparent hallucination Assessment/Plan Plan Narrative: Continue current antibiotics. Continue IV diuresis with IV Bumex. Strict I&O. Daily standing weight. PT evaluation and treatment. - Problems/Diagnosis (1) Heart failure, diastolic, with acute decompensation Problem: Acute (2) Wound infection after surgery Problem: Acute (3) Atrial fibrillation Problem: Chronic Qualifiers: Atrial fibrillation type: chronic Qualified Code(s): I48.2 - Chronic atrial fibrillation (4) S/P CABG (coronary artery bypass graft) Problem: Chronic (5) S/P triple vessel bypass Problem: Chronic (6) Amiodarone toxicity Problem: Suspected (7) UTI (urinary tract infection) Problem: Acute
[2018-01-14] MEDS: ROSUVASTATIN CALCIUM 20 MG TABLET PO SCH (20:12)
[2018-01-14] MEDS ORDERED: CARVEDILOL 3.125 MG TABLET PO SCH (21:00)
[2018-01-15 05:31] LABS: Hematocrit 28.1 % (42.0-52.0); Hemoglobin 9.1 gm/dL (13.5-18.0); Mean Corpuscular Hemoglobin 30.4 pg (27-31); Mean Corpuscular Hgb Conc 32.4 g/dl (32-36); Mean Platelet Volume 9.2 fl (8-11.3); Neutrophil # 7.8 K/mm3 (1.3-6.0); Neutrophil % 80.5 % (42-75.0); Platelet Count 266 K/mm3 (150-450); Red Blood Count 2.99 M/mm3 (4.7-6.0); Red Cell Distribution Width 15.9 % (11.5-14.0); White Blood Count 9.7 K/mm3 (4.0-10.5)
[2018-01-15 05:50] LABS: Anion Gap 8.7 mmol/L (6.8-13.8); BUN/Creatinine Ratio 18.1 (9.0-21.6); Calcium * 8.6 mg/dL (7.9-10.9); Estimated Creat Clear 43.7; Potassium 3.7 mmol/L (3.4-4.6)
[2018-01-15] MEDS: INSULIN LISPRO 100 UNITS/ML VIAL SC SCH ×3 (06:41→17:18)
[2018-01-15] MEDS: LEVOTHYROXINE SODIUM 75 MCG TABLET PO SCH (06:45)
[2018-01-15 08:54] LABS: Prothrombin Time (Patient) 35.4 Seconds (9.0-11.0)
[2018-01-15 08:56] LABS: INR 3.5 INR (0.90-1.10)
[2018-01-15] MEDS: KETOROLAC TROMETHAMINE OP SCH ×4 (09:29→23:01)
[2018-01-15] MEDS: ASPIRIN 81 MG TABLET.DR PO SCH (09:31)
[2018-01-15] MEDS: BISACODYL 10 MG SUPP.RECT RC SCH (09:31)
[2018-01-15] MEDS: FERROUS SULFATE 325 MG TABLET PO SCH ×3 (09:32→16:19)
[2018-01-15] MEDS: POTASSIUM CHLORIDE 10 MEQ TABLET.SA PO SCH (09:32)
[2018-01-15] MEDS: METOPROLOL TARTRATE 25 MG TABLET PO SCH ×2 (09:32→23:05)
[2018-01-15] MEDS: MULTIVITAMINS 1 CAP CAPSULE PO SCH (09:33)
[2018-01-15] MEDS: POLYETHYLENE GLYCOL 3350 119 GM BTL PO SCH (09:33)
[2018-01-15] MEDS: RANITIDINE HCL 15 MG/ML BTL PO SCH ×2 (09:34→23:17)
[2018-01-15] MEDS: PANTOPRAZOLE SODIUM 40 MG TABLET.EC PO SCH (09:34)
[2018-01-15] MEDS: SENNOSIDES/DOCUSATE SODIUM 1 TAB TABLET PO SCH ×3 (09:34→16:19)
[2018-01-15] MEDS: BUMETANIDE 0.25 MG/ML VIAL IV SCH ×2 (09:41→23:21)
[2018-01-15] MEDS: INSULIN DETEMIR 100 UNITS/ML VIAL SC SCH ×2 (09:45→23:20)
[2018-01-15] MEDS: SERTRALINE HCL 50 MG TABLET PO SCH (09:46)
[2018-01-15] MEDS: COLLAGENASE CLOSTRIDIUM HIST. 30 APPL TUBE TP SCH (09:50)
[2018-01-15] MEDS: ACETAMINOPHEN 325 MG TABLET PO PRN ×3 (10:00→23:15)
[2018-01-15] MEDS ORDERED: ONDANSETRON HCL/PF 2 MG/ML VIAL IV ONE (11:41)
[2018-01-15] MEDS ORDERED: ONDANSETRON HCL/PF 2 MG/ML VIAL ONE (11:44)
[2018-01-15] MEDS ORDERED: WARFARIN SODIUM 1 TAB TAB PO SCH (17:00)
[2018-01-15] MEDS: ONDANSETRON HCL/PF 2 MG/ML VIAL IV PRN (22:29)
[2018-01-15] MEDS: ROSUVASTATIN CALCIUM 20 MG TABLET PO SCH (23:04)
[2018-01-15] MEDS: IRON SUCROSE COMPLEX 100 MG in NORMAL SALINE 100 ML IV SCH (23:23)
[2018-01-16] MEDS: ONDANSETRON HCL/PF 2 MG/ML VIAL IV PRN ×2 (04:45→09:48)
[2018-01-16 05:45] LABS: Hematocrit 29.3 % (42.0-52.0); Hemoglobin 9.3 gm/dL (13.5-18.0); Mean Cell Volume 92.7 fl (78-100); Mean Corpuscular Hemoglobin 29.4 pg (27-31); Mean Corpuscular Hgb Conc 31.7 g/dl (32-36); Mean Platelet Volume 9.1 fl (8-11.3); Neutrophil # 8.3 K/mm3 (1.3-6.0); Neutrophil % 79.9 % (42-75.0); Platelet Count 322 K/mm3 (150-450); Red Blood Count 3.16 M/mm3 (4.7-6.0); Red Cell Distribution Width 15.8 % (11.5-14.0); White Blood Count 10.4 K/mm3 (4.0-10.5)
[2018-01-16 06:00] LABS: Prothrombin Time (Patient) 29.8 Seconds (9.0-11.0)
[2018-01-16 06:03] LABS: INR 2.95 INR (0.90-1.10)
[2018-01-16 06:11] LABS: Anion Gap 7.8 mmol/L (6.8-13.8); BUN/Creatinine Ratio 17.6 (9.0-21.6); Calcium * 8.4 mg/dL (7.9-10.9); Carbon Dioxide 28.8 mmol/L (24-32.6); Estimated Creat Clear 45.7; Potassium 3.6 mmol/L (3.4-4.6)
[2018-01-16] MEDS: INSULIN LISPRO 100 UNITS/ML VIAL SC SCH (06:21)
[2018-01-16] MEDS: LEVOTHYROXINE SODIUM 75 MCG TABLET PO SCH (06:26)
[2018-01-16] MEDS: ACETAMINOPHEN 325 MG TABLET PO PRN (06:49)
[2018-01-16] MEDS: COLLAGENASE CLOSTRIDIUM HIST. 30 APPL TUBE TP SCH (08:47)
[2018-01-16] MEDS: KETOROLAC TROMETHAMINE OP SCH (08:47)
--- NOTE | 2018-01-16 10:03 | PN ---
Subjective - Date and Time Seen Date: 01/16/18 Time: 10:00 Subjective Narrative: The patient admits to pain over the top of his sternal incision. Overnight, the area opened after nursing wiped the area. The area is now draining. Objective - Review of Systems Generalized/Overall Review: Reports: Weakness, Fatigue Abdominal: Reports: Nausea, Vomiting Musculoskeletal Complaints: Reports: Other - upper sternum pain located over open area Skin: Reports: Other - Redness and pain around sternotomy incision Misc: All systems neg except as marked - Vitals Vitals: Last Vital Signs Temp 36.3 C 01/16/18 06:41 Pulse 87 01/16/18 06:41 Resp 16 01/16/18 06:41 BP 155/83 H 01/16/18 06:41 Pulse Ox 98 01/16/18 06:41 - Abnormal Lab Findings Abnormal Lab Findings: Abnormal Lab Results 01/16/18 01/16/18 01/16/18 Range/Units 05:40 05:40 05:40 RBC 3.16 L (4.7-6.0) M/mm3 Hgb 9.3 L (13.5-18.0) gm/dL Hct 29.3 L (42.0-52.0) % MCHC 31.7 L (32-36) g/dl RDW 15.8 H (11.5-14.0) % Immature Gran % (Auto) 0.80 H (0.001-0.429) % Immature Gran # (Auto) 0.08 H (0.000-0.0310) K/mm3 Neutrophils % 79.9 H (42-75.0) % Lymphocytes % 9.7 L (20-51) % Neutrophils # 8.3 H (1.3-6.0) K/mm3 Lymphocytes # 1.01 L (1.5-3.5) k/mm3 PT 29.8 H (9.0-11.0) Seconds INR (Anticoag Therapy) 2.95 H (0.90-1.10) INR BUN 27 H (6-23) mg/dL Creatinine 1.53 H (0.4-1.4) mg/dL Est GFR (Non-Af Amer) 48 L (60-130) mL/min Random Glucose 140 H D (70-110) mg/dL B-Natriuretic Peptide 53112 H (5-350) pg/mL - Exam Constitutional: Present: Alert, Oriented x3, Cooperative, Well developed, Well nourished, No distress ENT Exam: Present: normal ENT inspection, hearing grossly normal, moist mucous membranes Respiratory: Present: other - Coarse breath sounds bilaterally left>right Cardiovascular/Chest: Present: irregularly irregular Abdomen: Present: soft, nontender, nondistended, other - PEG tube present, hypoactive Extremity: Present: lower extremity edema - 2+ edema left>right Skin Exam: Present: other - Sternotomy incision with surrounding erythema, area of erythema outlined on admission, increased warmth over the area as well, now with 1-2cm circular open area at the superior aspect of the incision with active purulent drainage Neurologic: Present: alert, oriented x 3, other - Tremors, downward nystagmus, generalized upper and lower extremity weakness Appearance: Present: appropriate appearance, appropriate insight, neat, no memory impairment Eye contact: Present: cooperative, good eye contact, normal speech Thoughts: Present: normal thought pattern, no apparent hallucination Assessment/Plan Plan Narrative: Patient will be transferred to [facility] for ongoing management of his sternotomy incision/wound infection. Please see discharge summary from today's date for further information. - Problems/Diagnosis (1) Wound infection after surgery Problem: Acute (2) Amiodarone toxicity Problem: Suspected (3) S/P CABG (coronary artery bypass graft) Problem: Chronic (4) S/P triple vessel bypass Problem: Chronic
[2018-01-16] MEDS: ASPIRIN 81 MG TABLET.DR PO SCH (10:10)
[2018-01-16] MEDS: FERROUS SULFATE 325 MG TABLET PO SCH (10:10)
[2018-01-16] MEDS: MULTIVITAMINS 1 CAP CAPSULE PO SCH (10:11)
[2018-01-16] MEDS: POTASSIUM CHLORIDE 10 MEQ TABLET.SA PO SCH (10:11)
[2018-01-16] MEDS: INSULIN DETEMIR 100 UNITS/ML VIAL SC SCH (10:11)
[2018-01-16] MEDS: POLYETHYLENE GLYCOL 3350 119 GM BTL PO SCH (10:11)
[2018-01-16] MEDS: METOPROLOL TARTRATE 25 MG TABLET PO SCH (10:11)
[2018-01-16] MEDS: PANTOPRAZOLE SODIUM 40 MG TABLET.EC PO SCH (10:12)
[2018-01-16] MEDS: RANITIDINE HCL 15 MG/ML BTL PO SCH (10:12)
[2018-01-16] MEDS: SENNOSIDES/DOCUSATE SODIUM 1 TAB TABLET PO SCH (10:12)
[2018-01-16] MEDS: SERTRALINE HCL 50 MG TABLET PO SCH (10:12)
[2018-01-16] MEDS: BUMETANIDE 0.25 MG/ML VIAL IV SCH (10:17)
[2018-01-16] MEDS: BISACODYL 10 MG SUPP.RECT RC SCH (10:23)
[2018-01-16 11:13] VITALS: BP 141/69
[2018-01-16] MEDS ORDERED: POLYVINYL ALCOHOL 150 DROP BTL OP PRN (11:15)
--- NOTE | 2018-01-25 16:11 | PN ---
Dictated Progress Note - Date and Time Seen: Date: 01/14/18 Time: 08:00 - Progress Note Narrative: Vital Signs - Last Taken Temp Pulse Resp BP Pulse Ox The patient was interviewed and examined. His was present. He has a gastrostomy tube which appears to be an initial mushroom PEG tube. The site appears healthy. The tube is not currently being used. The patient's INR is over 4 today, so the tube should not be removed at this time.
--- NOTE | 2018-02-01 11:53 | DS ---
Transfer Discharge Summary - Diagnosis(s)/Problems (1) Wound infection after surgery Problem: Acute (2) Amiodarone toxicity Problem: Suspected (3) S/P CABG (coronary artery bypass graft) Problem: Chronic (4) S/P triple vessel bypass Problem: Chronic - Course Description of Stay: ADMISSION DATE: 01/13/2018 TRANSFER DISCHARGE DATE: 01/16/2018 ADMISSION HPI: The patient presented to my office today to see me in clinic on multiple generalized symptoms including shortness of breath, fever (low-grade), confusion, lethargy. The patient had a three-vessel CABG on 10/26/2016 at the [facility]. He unfortunately had an extremely difficult postoperative recovery which included tracheostomy and PEG tube placement. At this time, his tracheostomy has previously been decannulated although his PEG tube still remains. His PEG tube has not been used in approximately 4 weeks. After his admission at [facility] he was transferred to an LTAC where he stayed for a few weeks before being transferred to [place] for acute inpatient rehabilitation. He was discharged from acute inpatient rehabilitation and transferred to [facility] in [place], [place] on 01/11/2018. HOSPITAL COURSE: The patient was found to have a sternotomy incision wound infection that opened up with active purulent drainage from the open wound on 01/16 and the patient was transferred to [facility] for further management by his cardiothoracic physician and team. The patient was transferred in fair but stable condition. Procedures Performed: none - Medications Medications: Active Medications Discontinued Medications Acetaminophen (Tylenol) 650 mg PO Q4H PRN PRN Reason: Mild Pain or Fever > 100.4F Stop: 02/12/18 14:09 Last Admin: 01/16/18 06:49 Dose: 650 mg Amiodarone HCl (Cordarone) 200 mg PO DAILY [facility] Stop: 02/13/18 09:01 Last Admin: 01/14/18 10:17 Dose: 200 mg Aspirin (Aspirin Enteric Coated) 81 mg PO DAILY [facility] Stop: 02/13/18 09:01 Last Admin: 01/16/18 10:10 Dose: Not Given Bisacodyl (Dulcolax Suppository) 10 mg RC DAILY [facility] Stop: 02/12/18 15:31 Last Admin: 01/16/18 10:23 Dose: 10 mg Bumetanide (Bumex) 1 mg IV ONCE PRN PRN Reason: GIVE AFTER UNIT OF PRBCs Stop: 02/13/18 08:46 Last Admin: 01/14/18 14:06 Dose: 1 mg Bumetanide (Bumex) 1 mg IV DAILY [facility] Stop: 02/13/18 09:01 Last Admin: 01/15/18 09:41 Dose: 1 mg Bumetanide (Bumex) 1 mg IV BID [facility] Stop: 02/14/18 21:01 Last Admin: 01/16/18 10:17 Dose: 1 mg Collagenase (Santyl) 1 appl TP DAILY [facility] Stop: 02/14/18 09:01 Last Admin: 01/16/18 08:47 Dose: 1 appl Escitalopram Oxalate (Lexapro) 10 mg PO DAILY [facility] Stop: 02/13/18 09:01 Last Admin: 01/14/18 10:18 Dose: 10 mg Ferrous Sulfate (Ferrous Sulfate) 325 mg PO TIDWM [facility] Stop: 02/13/18 09:01 Last Admin: 01/16/18 10:10 Dose: Not Given Furosemide (Lasix) 40 mg IV ONCE ONE Stop: 01/13/18 21:24 Last Admin: 01/13/18 21:49 Dose: 40 mg Iron Sucrose 100 mg/ Sodium (Chloride) 105 mls @ 200 mls/hr IV HS [facility] Stop: 02/12/18 22:01 Last Infusion: 01/15/18 23:55 Dose: Infused Ceftriaxone Sodium 1,000 mg/ (Dextrose/Water) 100 mls @ 200 mls/hr IV Q24H [facility]; Protocol Stop: 02/13/18 07:01 Last Infusion: 01/16/18 07:02 Dose: Infused Insulin Detemir (Levemir) 8 units SC Q12H [facility] Stop: 02/13/18 09:01 Last Admin: 01/16/18 10:11 Dose: Not Given Insulin Human Lispro (Humalog) 0 units SC ACINS [facility]; Protocol Stop: 02/12/18 17:01 Last Admin: 01/16/18 06:21 Dose: Not Given Ketorolac Tromethamine (Acular) 1 drop OP QID [facility] Stop: 02/12/18 21:01 Last Admin: 01/16/18 08:47 Dose: 1 drop Levothyroxine Sodium (Synthroid) 75 mcg PO DAILY@0700 [facility] Stop: 02/13/18 07:01 Last Admin: 01/16/18 06:26 Dose: 75 mcg Metoprolol Tartrate (Lopressor) 25 mg PO BID [facility] Stop: 02/12/18 21:01 Last Admin: 01/16/18 10:11 Dose: Not Given Multivitamins/Folic Acid (Multivitamin Emory) 1 cap PO DAILY [facility] Stop: 02/13/18 09:01 Last Admin: 01/16/18 10:11 Dose: Not Given Ondansetron HCl (Zofran) 4 mg IV ONCE ONE Stop: 01/15/18 11:42 Last Admin: 01/15/18 11:47 Dose: 4 mg Ondansetron HCl (Zofran) 4 mg IV Q6H PRN PRN Reason: Nausea And Vomiting Stop: 02/14/18 22:23 Last Admin: 01/16/18 09:48 Dose: 4 mg Pantoprazole Sodium (Protonix) 40 mg PO DAILY [facility] Stop: 02/13/18 09:01 Last Admin: 01/16/18 10:12 Dose: Not Given Polyethylene Glycol (Miralax) 17 gm PO DAILY [facility] Stop: 02/12/18 15:31 Last Admin: 01/16/18 10:11 Dose: Not Given Potassium Chloride (Klor-Con 10) 10 meq PO DAILY [facility] Stop: 02/13/18 09:01 Last Admin: 01/16/18 10:11 Dose: Not Given Ranitidine HCl (Zantac) 150 mg PO BID [facility] Stop: 02/12/18 21:01 Last Admin: 01/16/18 10:12 Dose: Not Given Rosuvastatin Calcium (Crestor) 20 mg PO HS [facility] Stop: 02/12/18 21:01 Last Admin: 01/15/18 23:04 Dose: 20 mg Senna/Docusate Sodium (Senokot-S) 1 tab PO TID [facility] Stop: 02/12/18 21:46 Last Admin: 01/16/18 10:12 Dose: Not Given Sertraline HCl (Zoloft) 50 mg PO DAILY [facility] Stop: 02/14/18 09:01 Last Admin: 01/16/18 10:12 Dose: Not Given Warfarin Sodium (Coumadin (Per Pharmacy)) 0 tab PO DAILY@1700 [facility] Stop: 02/14/18 17:01 Last Admin: 01/15/18 16:35 Dose: Not Given - Disposition Disposition: Short Term Hospital Inpatient Condition: Fair Discharge Date: 01/16/18 Discharge Time: 15:00
--- NOTE | 2018-02-01 12:02 | PN ---
Subjective - Date and Time Seen Date: 01/15/18 Time: 11:30 Subjective Narrative: Patient seen and examined at bedside. No acute issues overnight. Patient denies any new issues or concerns this AM. Objective - Review of Systems Generalized/Overall Review: Reports: Weakness, Fatigue Respiratory: Reports: Cough, Shortness of Breath Cardiac: Reports: Edema Abdominal: Reports: Nausea, Vomiting Misc: All systems neg except as marked - Vitals Vitals: Last Vital Signs Temp 36.2 C 01/16/18 11:12 Pulse 88 01/16/18 11:12 Resp 16 01/16/18 11:12 BP 141/69 01/16/18 11:12 Pulse Ox 97 01/16/18 11:12 - Exam Constitutional: Present: Alert, Oriented x3, Cooperative, No distress ENT Exam: Present: moist mucous membranes Respiratory: Present: other - Coarse breath sounds left>right Cardiovascular/Chest: Present: irregularly irregular Abdomen: Present: soft, nontender, nondistended, other - PEG tube present, hypoactive Extremity: Present: lower extremity edema - left>right Skin Exam: Present: pallor, other - Sternotomy incision with surrounding delmis thema, area of erythema outlined on admission, increased warmth over the area as well, fluctuance appreciated over superior aspect of incision, no open wounds, no drainage Neurologic: Present: alert, oriented x 3, other - Tremors, downward nystagmus, upper and lower extremity weakness Appearance: Present: appropriate appearance, appropriate insight, neat, no memory impairment Eye contact: Present: cooperative, good eye contact, normal speech Thoughts: Present: normal thought pattern, no apparent hallucination Assessment/Plan Plan Narrative: I have asked to have wound care return to see the patient to evaluate his sternotomy incision as there is now an area of fluctuance over the superior aspect of the incision. Overall, erythema around incision has improved since admission. Continue antibiotics for now and await wound team input. - Problems/Diagnosis (1) Wound infection after surgery Problem: Acute (2) Amiodarone toxicity Problem: Suspected (3) S/P CABG (coronary artery bypass graft) Problem: Chronic (4) S/P triple vessel bypass Problem: Chronic
== END 2018-01-16 11:59 | disposition short-term general hospital (02) | DRG 194 ==
LOC: CCFAL → LAB 12:33 → MS 14:01
PROVIDERS: ADMIT Internal Medicine; ATTEND Internal Medicine
DX: Z79.82 Long term (current) use of aspirin; E11.621 Type 2 diabetes mellitus with foot ulcer; L97.929 Non-pressure chronic ulcer of unspecified part of left lower leg with unspecified severity; R11.2 Nausea with vomiting, unspecified; N18.3 Chronic kidney disease, stage 3 (moderate); Z79.01 Long term (current) use of anticoagulants; G47.30 Sleep apnea, unspecified; E78.5 Hyperlipidemia, unspecified; I25.10 Atherosclerotic heart disease of native coronary artery without angina pectoris; E66.9 Obesity, unspecified; J18.1 Lobar pneumonia, unspecified organism; R41.0 Disorientation, unspecified; L89.311 Pressure ulcer of right buttock, stage 1; Z68.30 Body mass index [BMI] 30.0-30.9, adult; E11.311 Type 2 diabetes mellitus with unspecified diabetic retinopathy with macular edema; K21.9 Gastro-esophageal reflux disease without esophagitis; Z95.1 Presence of aortocoronary bypass graft; E11.22 Type 2 diabetes mellitus with diabetic chronic kidney disease; I12.9 Hypertensive chronic kidney disease with stage 1 through stage 4 chronic kidney disease, or unspecified chronic kidney disease; L97.521 Non-pressure chronic ulcer of other part of left foot limited to breakdown of skin; I45.6 Pre-excitation syndrome; I48.2 Chronic atrial fibrillation; Z93.1 Gastrostomy status; Z79.4 Long term (current) use of insulin
CPT/HCPCS: 36415; 71010; 71020; 71045; 71046; 74000; 74018; 80048; 80053; 81001; 82306; 82550; 82553; 82607; 82746; 83036; 83519; 83540; 83550; 83735; 83880; 84145; 84439; 84443; 84481; 84484; 85014; 85018; 85025; 85610; 86850; 86900; 87040; 87070; 87077; 87081; 87086; 87186; 93005; 94660; 97162; 97166; 99214; J1756; J2405; P9016

== ENCOUNTER 2018-06-16 15:34 | Inpatient (IN) ==
[2018-06-16] MEDS ORDERED: NORMAL SALINE 1,000 ML IV ONE (15:51)
[2018-06-16] MEDS ORDERED: ACETAMINOPHEN 1,000 MG/100 ML BTL IV ONE (15:52)
[2018-06-16 16:08] LABS: Hematocrit 28.7 % (42.0-52.0); Hemoglobin 9.3 gm/dL (13.5-18.0); Mean Cell Volume 94.1 fl (78-100); Mean Corpuscular Hemoglobin 30.5 pg (27-31); Mean Corpuscular Hgb Conc 32.4 g/dl (32-36); Mean Platelet Volume 9.3 fl (8-11.3); Neutrophil # 9.4 K/mm3 (1.3-6.0); Platelet Count 200 K/mm3 (150-450); Red Blood Count 3.05 M/mm3 (4.7-6.0); Red Cell Distribution Width 15.6 % (11.5-14.0); White Blood Count 10.9 K/mm3 (4.0-10.5)
[2018-06-16 16:16] LABS: INR 1.78 INR (0.92-1.08); Prothrombin Time (Patient) 17.2 Seconds (9.1-10.7)
[2018-06-16 16:27] LABS: Albumin * 2.9 gm/dl (3.4-5.0); Anion Gap 15.1 mmol/L (6.8-13.8); BUN/Creatinine Ratio 23.1 (9.0-21.6); Bilirubin, Total 0.9 mg/dL (0.0-1.1); Ca. Corrected For Albumin 9.3 mg/dL (8.4-10.2); Calcium * 8.7 mg/dL (7.9-10.9); Carbon Dioxide 25.2 mmol/L (24-32.6); Potassium 4.3 mmol/L (3.4-4.6); Total Protein 7.1 gm/dL (6.2-8.2)
[2018-06-16 16:28] LABS: Troponin I 1.309 ng/mL (0.00-0.10)
[2018-06-16] MEDS ORDERED: cefTRIAXone SODIUM 1,000 MG/100 ML BAG IV ONE (16:40)
[2018-06-16] MEDS ORDERED: AZITHROMYCIN 500 MG in DEXTROSE 5 % IN WATER 250 ML IV ONE ×2 (17:30)
--- NOTE | 2018-06-16 17:49 | ERNOTE ---
Medical Problem HPI - Narrative Date of Service: 06/16/18 - General Chief Complaint: Fever Time Seen by Provider: 06/16/18 15:42 Source: patient, family Exam Limitations: no limitations - Immun/Allergies/Home Medications Immunizations: IMMUNIZATION HX Immunizations Up to Date Yes History of Influenza Vaccine Yes Hx Pneumococcal Vaccination Yes Allergies/Adverse Reactions: Allergies simvastatin Adverse Reaction (Mild, Verified 06/16/18 15:52) extreme body aches Home Medications: HOME MEDICATIONS Nitroglycerin [Nitrostat] 0.4 mg SUBLINGUAL [id number] PRN 12/12/15 [Last Taken Unknown] Aspirin [Aspirin Enteric Coated] 81 mg PO DAILY 03/16/17 [Last Taken 01/13/18 07:00] Multivitamins [Multivitamin Emory] 1 cap PO DAILY 03/16/17 [Last Taken Unknown] acetaminophen 325 mg tablet 650 mg PO Q4H PRN tab 01/13/18 [Last Taken Unknown] ketorolac 0.5 % eye drops 1 drp OP QID 01/13/18 [Last Taken 01/13/18 12:00] atorvastatin 40 mg tablet 40 mg PO DAILY #90 tab 05/10/18 [Last Taken Unknown] guaifenesin ER 1,200 mg tablet, extended release 12 hr 1,200 mg PO Q12H #180 tab 05/10/18 [Last Taken Unknown] insulin syringe U-100 with needle 1 mL 31 gauge x 5/16" See Dose Instructions .ROUTE .MEDSUPPLY #300 ea 05/10/18 [Last Taken Unknown] levothyroxine 25 mcg capsule 25 mcg PO DAILY #90 cap 05/10/18 [Last Taken Unknown] potassium chloride ER 10 mEq tablet,extended release(part/cryst) 10 meq PO DAILY #90 tab 05/10/18 [Last Taken Unknown] sotalol 80 mg tablet 80 mg PO Q12H #180 tab 05/10/18 [Last Taken Unknown] tamsulosin 0.4 mg capsule 0.4 mg PO DAILY #90 cap 05/10/18 [Last Taken Unknown] furosemide 40 mg tablet 40 mg PO DAILY #30 tab 05/24/18 [Last Taken Unknown] finasteride 5 mg tablet 5 mg PO DAILY #90 tab 05/27/18 [Last Taken Unknown] Warfarin Sodium 4 mg PO DAILY 06/04/18 [Last Taken Unknown] Insulin NPH Hum/Reg Insulin Hm [Novolin 70-30 Flexpen] 100 unit SQ DAILY 06/16/18 [Last Taken Unknown] Omeprazole 40 mg PO BID 06/16/18 [Last Taken Unknown] - History of Present History Narrative: Patient presents to the ED for confusion, fever, cough, runny nose. He has been having problems fore a while now with recurrent falls. Has fallen and hit his head now 2-3 times. Over the last couple of days he has been having cough, confusion, runny nose. Not feeling well. No chest pain. Has a high fever here. Nothing really seems to make this better or worse. No vomiting or abdominal pain. Timing: constant, getting worse Severity: severe Modifying Factors - (Improves): Present: other - nothing Modifying Factors - (Worsens): Present: other - nothing Review of Systems - Review of Systems Constitutional: Present: fever EYE: Present: no symptoms reported ENT: Present: nasal drainage Respiratory: Present: shortness of breath, cough Cardiology: Absent: chest pain Gastrointestinal/Abdominal: Absent: abdominal pain Genitourinary: Absent: dysuria Neurological: Present: other - recurrent head injuries All Other Systems: All systems neg except as marked Medical History (Last Reviewed 06/16/18 @ 17:39 by Johan Dhillon MD) MRSA infection within last 3 months (Acute) Type 2 diabetes mellitus (Chronic) Pressure ulcer of right foot (Acute) Decubitus ulcer of buttock (Acute) Left lower lobe pneumonia (Acute) GERD (gastroesophageal reflux disease) (Chronic) Atrial fibrillation (Chronic) Coronary artery disease (Chronic) Pneumonia Atrial fibrillation Onset Date: 03/15/12 [facility], started on Coumadin today. 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 Pt apparently was enrolled in a WPW research study at the [facility] but details/records are N/A. 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 He denies ever having any ablation procedure. Amiodarone toxicity (Resolved) Cataract, bilateral Dupuytren's contracture Onset Date: ~1995 Surgical History: Surgical History (Last Reviewed 06/16/18 @ 17:39 by Johan Dhillon MD) S/P triple vessel bypass (Chronic) History of esophagogastroduodenoscopy (EGD) (Resolved) w/biopsy. 1995 Dr. Jonnathan COLON. 03/17/17 Dr. Ab Souza negative. Esophagitis,gastritis. History of detached retina repair (Resolved) 1999 History of cardioversion 2011 History of echocardiogram 10/09/15 Normal LV size. Severe concentric LVH. Low normal LV systolic function with EF 54%. No RWMA. Normal RV side. Normal RV systolic function. No significant valvular abnormalities. History of stress test 06/2015 [facility] - mod-sized inferior wall and small apical perfusion defects, both reversible on rest images, consistent with ischemia. EF 60%. Hx of cataract surgery 2008 right; 2009 left Hx of colonoscopy 08/01/11 Dr. Ab carranza S/P triple vessel bypass Onset Date: 10/26/17 with complications; diaylysis, trach Family History: Family History (Last Reviewed 06/16/18 @ 17:39 by Johan Dhillon MD) Father , Age 73 Heart disease CHF (congestive heart failure) Diabetes IDDM Mother , Age 70 Peritonitis Toxic shock syndrome After abdominal surgery Brother Diabetes IDDM Cancer Renal. Lost 1 kidney. Social History: Preferred Language Estonian Do you have any pentecostal or No cultural preference? Smoking Status Never smoker Abuse History No History of abuse Psych History No pertinent hx (Last Updated 06/04/18 @ 17:08 by Alaina Arauz MD) No Social History Section defined Physical Exam - Physical Exam General Appearance: Present: other - confused, febrile, tachypnea noted, likely d/t fever Head Exam: Present: normal inspection, no evidence of injury Eye Exam: Normal inspection: bilateral Ears, Nose, Throat: Present: other - chear nasal rhinorrhea. Absent: pharyngeal erythema Neck: Present: normal inspection Respiratory: Present: other - tachypnea, decreased breath sounds left base. Cardiovascular/Chest: Present: regular rate, rhythm Gastrointestinal/Abdominal: Present: normal bowel sounds, nontender, soft Back Exam: Absent: CVA tenderness (R), CVA tenderness (L) Extremity Exam: Present: other - no calf tenderness Neurological Exam: Present: other - generalized weakness, no acute unilateral focal motor or sensory deficits Skin Exam: Present: normal color, warm/dry Progress - Results and Orders Patient's Lab Results:: I have reviewed the patient's lab results. - Vital Signs Patient's Vital Signs:: I have reviewed the patient's vital signs. Vital Signs: Vital Signs 06/16/18 15:48 06/16/18 16:09 Temperature 39.6 C H Pulse Rate 101 H 93 Respiratory Rate 31 H 20 Blood Pressure 156/69 H 161/47 H O2 Sat by Pulse Oximetry 88 L 97 - EKG EKG #1 EKG: NSR EKG read: Interp. by me EKG Comments: Non-specific ST/T wave changes, no clear evidence of STEMI - X-Ray X-Ray #1 X-Ray: chest Interpretation: Interp. by me X-ray Comments: I reviewed official radiology report - CT/Ultrasound CT/Ultrasound Narrative: I reviewed the official CT scan report per radiology - Progress/Reassessment Chief Complaint: Fever Progress Note-Subjective: 06/16/18 17:46 Patient given IV fluids nd IV ABx. I discussed the case with Dr Calero who saw the patient in the ED and will admit the patient [facility]. he looked quite a bit better with decreased confusion and heart rate after his fever came down. Given his high PSI, acute admit. I feel his trop elevation is d/t his infection. Patient and family agreeable to admission Departure Clinical Impression: Fever, Pneumonia, Hypoxia, Elevated serum creatinine - Departure Disposition: Still a patient Condition: Fair
--- NOTE | 2018-06-16 19:28 | HP ---
Chief Complaint - Chief Complaint Date of Service: 06/16/18 Time of Service: 17:30 Chief Complaint: Fever and shortness of breath History of Present Illness: 73-year-old male with a past medical history of atrial fibrillation Beatties shelton litus type II, retention, GERD, hyperlipidemia, complaints of fever of 103 at home. Associated with productive cough with clear sputum, shortness of breath and malaise. Symptoms began 2 days ago. He presented for a sick visit with his primary care physician today and was sent to the emergency department due to a fever of 103 in the office. Chest x-ray shows bilateral perihilar and bibasilar heterogeneous opacities. Viral panel was negative. He had a mild leukocytosis and elevated troponin. He received a dose of ceftriaxone and azithromycin in the emergency department. Medical History (Last Reviewed 06/16/18 @ 17:39 by Johan Dhillon MD) MRSA infection within last 3 months (Acute) Type 2 diabetes mellitus (Chronic) Pressure ulcer of right foot (Acute) Decubitus ulcer of buttock (Acute) Left lower lobe pneumonia (Acute) GERD (gastroesophageal reflux disease) (Chronic) Atrial fibrillation (Chronic) Coronary artery disease (Chronic) Pneumonia Atrial fibrillation Onset Date: 03/15/12 [facility], started on Coumadin today. 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 Pt apparently was enrolled in a WPW research study at the [facility] but details/records are N/A. 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 He denies ever having any ablation procedure. Amiodarone toxicity (Resolved) Cataract, bilateral Dupuytren's contracture Onset Date: ~1995 Surgical History: Surgical History (Last Reviewed 06/16/18 @ 17:39 by Johan Dhillon MD) S/P triple vessel bypass (Chronic) History of esophagogastroduodenoscopy (EGD) (Resolved) w/biopsy. 1995 Dr. Jonnathan COLON. 03/17/17 Dr. Berger - Harley negative. Esophagitis,gastritis. History of detached retina repair (Resolved) 1999 History of cardioversion 2011 History of echocardiogram 10/09/15 Normal LV size. Severe concentric LVH. Low normal LV systolic function with EF 54%. No RWMA. Normal RV side. Normal RV systolic function. No significant valvular abnormalities. History of stress test 06/2015 Pharm [facility] MPI - mod-sized inferior wall and small apical perfusion defects, both reversible on rest images, consistent with ischemia. EF 60%. Hx of cataract surgery 2008 right; 2009 left Hx of colonoscopy 08/01/11 Dr. Berger - dillon S/P triple vessel bypass Onset Date: 10/26/17 with complications; diaylysis, trach Family History: Family History (Last Reviewed 06/16/18 @ 17:39 by Johan Dhillon MD) Father , Age 73 Heart disease CHF (congestive heart failure) Diabetes IDDM Mother , Age 70 Peritonitis Toxic shock syndrome After abdominal surgery Brother Diabetes IDDM Cancer Renal. Lost 1 kidney. Social History: Patient Lives/Resources With Spouse Utilized Occupation Cable Engineer Outside [employer] Preferred Language Greek Do you have any shinto or Yes: Muslim cultural preference? Smoking Status Never smoker Have you smoked in the past 12 No months Do you dip or chew tobacco No Abuse History No History of abuse Psych History No pertinent hx (Last Updated 06/04/18 @ 17:08 by Alaina Arauz MD) No Social History Section defined Review Of Systems (GEN) - Review of Systems Generalized/Overall Review: Present: Weakness, Fever, Malaise, Fatigue Respiratory: Present: Cough, Shortness of Breath Cardiac: Absent: Chest Pain Abdominal: Absent: Abdominal Pain Misc: All systems neg except as marked Immunizations: IMMUNIZATION HX Immunizations Up to Date Yes History of Influenza Vaccine Yes Hx Pneumococcal Vaccination Yes Allergies/Adverse Reactions: Allergies Allergy/AdvReac Type Severity Reaction Status Date / Time amiodarone AdvReac Severe Other Verified 06/16/18 19:17 simvastatin AdvReac Mild extreme Verified 06/16/18 15:52 body aches Home Medications: HOME MEDICATIONS Nitroglycerin [Nitrostat] 0.4 mg SUBLINGUAL [id number] PRN 12/12/15 [Last Taken Unknown] Aspirin [Aspirin Enteric Coated] 81 mg PO DAILY 03/16/17 [Last Taken 01/13/18 07:00] acetaminophen 325 mg tablet 650 mg PO Q4H PRN tab 01/13/18 [Last Taken Unknown] ketorolac 0.5 % eye drops 1 drp OP QID 01/13/18 [Last Taken 01/13/18 12:00] atorvastatin 40 mg tablet 40 mg PO DAILY #90 tab 05/10/18 [Last Taken Unknown] guaifenesin ER 1,200 mg tablet, extended release 12 hr 1,200 mg PO Q12H #180 tab 05/10/18 [Last Taken Unknown] insulin syringe U-100 with needle 1 mL 31 gauge x 08/12" See Dose Instructions .ROUTE .MEDSUPPLY #300 ea 05/10/18 [Last Taken Unknown] levothyroxine 25 mcg capsule 25 mcg PO DAILY #90 cap 05/10/18 [Last Taken Unknown] potassium chloride ER 10 mEq tablet,extended release(part/cryst) 10 meq PO DAILY #90 tab 05/10/18 [Last Taken Unknown] sotalol 80 mg tablet 80 mg PO Q12H #180 tab 05/10/18 [Last Taken Unknown] tamsulosin 0.4 mg capsule 0.4 mg PO DAILY #90 cap 05/10/18 [Last Taken Unknown] furosemide 40 mg tablet 40 mg PO DAILY #30 tab 05/24/18 [Last Taken Unknown] finasteride 5 mg tablet 5 mg PO DAILY #90 tab 05/27/18 [Last Taken Unknown] Warfarin Sodium 4 mg PO DAILY 06/04/18 [Last Taken Unknown] Insulin NPH Hum/Reg Insulin Hm [Novolin 70-30 Flexpen] 100 unit SQ DAILY 06/16/18 [Last Taken Unknown] Omeprazole 40 mg PO BID 06/16/18 [Last Taken Unknown] Exam - Exam Vital Signs: Vital Signs - Last Taken Temp 37.8 C 06/16/18 18:54 Pulse 75 06/16/18 18:54 Resp 16 06/16/18 18:54 BP 123/49 06/16/18 18:54 Pulse Ox 100 06/16/18 18:54 Constitutional: Present: Alert, Oriented x3, Cooperative, Well developed, Well nourished, No distress, Elderly, Looks Older than stated age ENT Exam: Present: hearing grossly normal Eye Exam: bilateral eye: normal inspection, PERRL Neck: Present: supple. Absent: lymphadenopathy (R), lymphadenopathy (L) Back Exam: Present: normal inspection Respiratory: Present: rhonchi - Bilateral lung post. Absent: crackles, wheezing Cardiovascular/Chest: Present: regular rate, rhythm, no murmur Peripheral Pulses: dorsalis-pedis (R): 1+, dorsalis-pedis (L): 1+ Abdomen: Present: Normal bowel sounds, soft, nontender Extremity: Present: pedal edema - 1+ bilaterally Skin Exam: Present: normal color, warm/dry Neurologic: Present: alert, normal mood/affect Appearance: Present: appropriate appearance Eye contact: Present: cooperative Thoughts: Present: normal mood /affect Diagnostic Studies: Abnormal Lab Results 06/16/18 06/16/18 06/16/18 Range/Units 16:00 16:00 16:00 WBC 10.9 H (4.0-10.5) K/mm3 RBC 3.05 L (4.7-6.0) M/mm3 Hgb 9.3 L (13.5-18.0) gm/dL Hct 28.7 L (42.0-52.0) % RDW 15.6 H (11.5-14.0) % Immature Gran % (Auto) 0.50 H (0.001-0.429) % Immature Gran # (Auto) 0.06 H (0.000-0.0310) K/mm3 Neutrophils % 86.0 H (42-75.0) % Lymphocytes % 6.2 L (20-51) % Neutrophils # 9.4 H (1.3-6.0) K/mm3 Lymphocytes # 0.68 L (1.5-3.5) k/mm3 PT 17.2 H (9.1-10.7) Seconds INR (Anticoag Therapy) 1.78 H (0.92-1.08) INR Anion Gap 15.1 H (6.8-13.8) mmol/L BUN 43 H D (6-23) mg/dL Creatinine 1.86 H (0.4-1.4) mg/dL Est GFR (Non-Af Amer) 38 L D (60-130) mL/min BUN/Creatinine Ratio 23.1 H (9.0-21.6) Random Glucose 268 H (70-110) mg/dL ALT 16 L (19-67) U/L Troponin I 1.309 H* (0.00-0.10) ng/mL Albumin 2.9 L (3.4-5.0) gm/dl Laboratory Results WBC 10.9 K/mm3 (4.0-10.5) H 06/16/18 16:00 RBC 3.05 M/mm3 (4.7-6.0) L 06/16/18 16:00 Hgb 9.3 gm/dL (13.5-18.0) L 06/16/18 16:00 Hct 28.7 % (42.0-52.0) L 06/16/18 16:00 MCV 94.1 fl (78-100) 06/16/18 16:00 MCH 30.5 pg (27-31) 06/16/18 16:00 MCHC 32.4 g/dl (32-36) 06/16/18 16:00 RDW 15.6 % (11.5-14.0) H 06/16/18 16:00 Plt Count 200 K/mm3 (150-450) 06/16/18 16:00 MPV 9.3 fl (8-11.3) 06/16/18 16:00 Immature Gran % (Auto) 0.50 % (0.001-0.429) H 06/16/18 16:00 Immature Gran # (Auto) 0.06 K/mm3 (0.000-0.0310) H 06/16/18 16:00 Neutrophils % 86.0 % (42-75.0) H 06/16/18 16:00 Lymphocytes % 6.2 % (20-51) L 06/16/18 16:00 Monocytes % 6.6 % (0.0-9) 06/16/18 16:00 Eosinophils % 0.2 % (0.0-3.0) 06/16/18 16:00 Basophils % 0.5 % (0.0-1.0) 06/16/18 16:00 Nucleated RBC % 0.0 k/mm3 (0-1) 06/16/18 16:00 Neutrophils # 9.4 K/mm3 (1.3-6.0) H 06/16/18 16:00 Lymphocytes # 0.68 k/mm3 (1.5-3.5) L 06/16/18 16:00 Monocytes # 0.7 k/mm3 (0.0-1.0) 06/16/18 16:00 Eosinophils # 0.0 k/mm3 (0.0-0.7) 06/16/18 16:00 Absolute Basophils 0.1 k/mm3 (0.0-0.1) 06/16/18 16:00 PT 17.2 Seconds (9.1-10.7) H 06/16/18 16:00 INR (Anticoag Therapy) 1.78 INR (0.92-1.08) H 06/16/18 16:00 Sodium 138 mmol/L (132-142) 06/16/18 16:00 Plasma Sodium 141 mmol/L (130-142) 06/16/18 16:00 Potassium 4.3 mmol/L (3.4-4.6) 06/16/18 16:00 Chloride 102 mmol/L (97-106) 06/16/18 16:00 Carbon Dioxide 25.2 mmol/L (24-32.6) 06/16/18 16:00 Anion Gap 15.1 mmol/L (6.8-13.8) H 06/16/18 16:00 BUN 43 mg/dL (6-23) H D 06/16/18 16:00 Creatinine 1.86 mg/dL (0.4-1.4) H 06/16/18 16:00 Est GFR (Non-Af Amer) 38 mL/min (60-130) L D 06/16/18 16:00 BUN/Creatinine Ratio 23.1 (9.0-21.6) H 06/16/18 16:00 Random Glucose 268 mg/dL (70-110) H 06/16/18 16:00 Lactic Acid, Venous 1.9 mmol/L (0.4-2.0) 06/16/18 16:00 Calcium 8.7 mg/dL (7.9-10.9) 06/16/18 16:00 Calcium Adj for Albumin 9.3 mg/dL (8.4-10.2) 06/16/18 16:00 Total Bilirubin 0.9 mg/dL (0.0-1.1) 06/16/18 16:00 AST 23 U/L (0-48) 06/16/18 16:00 ALT 16 U/L (19-67) L 06/16/18 16:00 Alkaline Phosphatase 76 U/L (50-170) 06/16/18 16:00 Troponin I 1.309 ng/mL (0.00-0.10) H* 06/16/18 16:00 Total Protein 7.1 gm/dL (6.2-8.2) 06/16/18 16:00 Albumin 2.9 gm/dl (3.4-5.0) L 06/16/18 16:00 Chlamy pneumoniae PCR Not detected (NotDetected) 06/16/18 17:00 Adenovirus (PCR) Not detected (NotDetected) 06/16/18 17:00 B. pertussis DNA (PCR) Not detected (NotDetected) 06/16/18 17:00 Coronavirus OC43 (PCR) Not detected (NotDetected) 06/16/18 17:00 Coronavirus HKU1 (PCR) Not detected (NotDetected) 06/16/18 17:00 Coronavirus 229E (PCR) Not detected (NotDetected) 06/16/18 17:00 Coronavirus NL63 (PCR) Not detected (NotDetected) 06/16/18 17:00 Human Metapneumovir PCR Not detected (NotDetected) 06/16/18 17:00 Influenza A (H1) PCR Not detected (NotDetected) 06/16/18 17:00 Influenza A (H1N1) PCR Not detected (NotDetected) 06/16/18 17:00 Influenza A (H3) PCR Not detected (NotDetected) 06/16/18 17:00 Influenza Type A Ag Negative (NEGATIVE) 06/16/18 16:00 Influenza Type B Ag Negative (NEGATIVE) 06/16/18 16:00 Influenza B (RT-PCR) Not detected (NotDetected) 06/16/18 17:00 M. pneumoniae (PCR) Not detected (NotDetected) 06/16/18 17:00 Parainfluenza 1 (PCR) Not detected (NotDetected) 06/16/18 17:00 Parainfluenza 2 (PCR) Not detected (NotDetected) 06/16/18 17:00 Parainfluenza 3 (PCR) Not detected (NotDetected) 06/16/18 17:00 Parainfluenza 4 (PCR) Not detected (NotDetected) 06/16/18 17:00 RSV (PCR) Not detected (NotDetected) 06/16/18 17:00 Rhinovirus (PCR) Not detected (NotDetected) 06/16/18 17:00 Assessment/Plan - Narrative Narrative: 73-year-old male with a past medical history of atrial fibrillation Beatties mellitus type II, retention, GERD, hyperlipidemia, complaints of fever of 103 at home. Associated with productive cough with clear sputum, shortness of breath and malaise. Symptoms began 2 days ago. He presented for a sick visit with his primary care physician today and was sent to the emergency department due to a fever of 103 in the office. Chest x-ray shows bilateral perihilar and bibasilar heterogeneous opacities. Viral panel was negative. He had a mild leukocytosis and elevated troponin. He received a dose of ceftriaxone and azithromycin in the emergency department. - Assessment/Plan (1) Fever Assessment: Likely secondary to pneumonia continue antibiotics. Problem: Acute (2) Pneumonia Assessment: Continue antibiotics and oxygen supplementation. I will change the antibiotic to Levaquin due to risk of QT prolongation with azithromycin and sotalol. Problem: Acute Qualifiers: Laterality: bilateral (3) Hypoxia Assessment: Continue oxygen supplementation. Problem: Acute (4) Elevated troponin level Assessment: He denies chest pain. Etiology unclear possibly multifactorial secondary to CKD, hypoxia. Continue trending troponin Problem: Acute
[2018-06-16] MEDS ORDERED: AZITHROMYCIN 500 MG in DEXTROSE 5 % IN WATER 250 ML IV SCH ×2 (19:45)
[2018-06-16] MEDS: SOTALOL HCL 80 MG TABLET PO SCH (20:46)
[2018-06-16] MEDS: PANTOPRAZOLE SODIUM 40 MG TABLET.EC PO SCH (20:46)
[2018-06-16] MEDS: KETOROLAC TROMETHAMINE OP SCH (20:46)
[2018-06-16 23:31] LABS: Urine Bilirubin Negative (NEGATIVE); Urine Blood 25 /ul (NEGATIVE); Urine Ketone Negative (NEGATIVE); Urine Nitrite Negative (NEGATIVE); Urine Protein 30 mg/dL (NEGATIVE); Urine Urobilinogen Normal (NORMAL)
[2018-06-16] MEDS ORDERED: ALBUTEROL SULFATE 2.5 MG/0.5 ML VIAL.NEB IH ONE ×2 (23:35→23:39)
[2018-06-16 23:41] LABS: Urine Appearance Clear (CLEAR); Urine Bacteria 2+; Urine Color Yellow; Urine WBC 0-5 /hpf (0-5)
[2018-06-17] MEDS: ACETAMINOPHEN 325 MG TABLET PO PRN (02:26)
[2018-06-17 05:48] LABS: Hematocrit 25.1 % (42.0-52.0); Mean Corpuscular Hemoglobin 29.6 pg (27-31); Mean Corpuscular Hgb Conc 31.5 g/dl (32-36); Mean Platelet Volume 10.1 fl (8-11.3); Neutrophil # 6.3 K/mm3 (1.3-6.0); Neutrophil % 86.8 % (42-75.0); Platelet Count 168 K/mm3 (150-450); Red Blood Count 2.67 M/mm3 (4.7-6.0); Red Cell Distribution Width 15.5 % (11.5-14.0); White Blood Count 7.3 K/mm3 (4.0-10.5)
[2018-06-17 06:07] LABS: Albumin * 2.4 gm/dl (3.4-5.0); Anion Gap 12.3 mmol/L (6.8-13.8); BUN/Creatinine Ratio 22.2 (9.0-21.6); Bilirubin, Total 0.6 mg/dL (0.0-1.1); Ca. Corrected For Albumin 9.1 mg/dL (8.4-10.2); Calcium * 8.1 mg/dL (7.9-10.9); Carbon Dioxide 24.5 mmol/L (24-32.6); Potassium 3.8 mmol/L (3.4-4.6)
[2018-06-17] MEDS: SOTALOL HCL 80 MG TABLET PO SCH ×2 (07:15→18:57)
[2018-06-17] MEDS: LEVOTHYROXINE SODIUM 25 MCG TABLET PO SCH (07:16)
[2018-06-17] MEDS ORDERED: ROSUVASTATIN CALCIUM 10 MG TABLET PO SCH (09:00)
[2018-06-17] MEDS ORDERED: INSUL NPH HU REC/INS RG HU REC 100 UNITS/ML VIAL SC SCH ×2 (09:00→12:00)
[2018-06-17 09:04] LABS: Prothrombin Time (Patient) 17.3 Seconds (9.1-10.7)
[2018-06-17 09:05] LABS: INR 1.79 INR (0.92-1.08)
[2018-06-17] MEDS: KETOROLAC TROMETHAMINE OP SCH ×4 (09:08→21:43)
[2018-06-17] MEDS: FUROSEMIDE 40 MG TABLET PO SCH (09:11)
[2018-06-17] MEDS: ASPIRIN 81 MG TABLET.DR PO SCH (09:11)
[2018-06-17] MEDS: POTASSIUM CHLORIDE 10 MEQ TABLET.SA PO SCH (09:11)
[2018-06-17] MEDS: PANTOPRAZOLE SODIUM 40 MG TABLET.EC PO SCH ×2 (09:12→21:43)
[2018-06-17] MEDS: FINASTERIDE 5 MG TABLET PO SCH (09:12)
[2018-06-17] MEDS: LEVOFLOXACIN IN DEXTROSE 5 % 750 MG/150 ML BAG IV SCH (11:42)
[2018-06-17] MEDS ORDERED: INSULIN LISPRO 100 UNITS/ML VIAL SC SCH (17:00)
[2018-06-17] MEDS ORDERED: INSULIN LISPRO 100 UNITS/ML VIAL SC ONE (17:00)
[2018-06-17] MEDS: MENTHOL 25 LOZENGE BAG MM PRN ×3 (17:16→21:51)
[2018-06-17] MEDS: TAMSULOSIN HCL 0.4 MG CAP.SR.24H PO SCH (17:17)
[2018-06-17] MEDS: WARFARIN SODIUM 4 MG TABLET PO SCH (17:17)
[2018-06-17] MEDS: HEPARIN SODIUM,PORCINE 5,000 UNITS/ML VIAL SC SCH (18:15)
--- NOTE | 2018-06-17 19:46 | PN ---
Subjective - Date and Time Seen Date: 06/17/18 Time: 10:35 Subjective Narrative: He would like to go home tomorrow so he can attend a class reunion lunch. He continues to have a mildly productive cough and shortness of breath. Denies chest pain. Objective - Review of Systems Generalized/Overall Review: Reports: Weakness, Malaise, Fatigue. Denies: Fever Respiratory: Reports: Shortness of Breath. Denies: Cough Cardiac: Denies: Chest Pain Abdominal: Denies: Abdominal Pain Misc: All systems neg except as marked - Vitals Vitals: Last Vital Signs Temp 38.3 C H 06/17/18 13:55 Pulse 68 06/17/18 17:56 Resp 20 06/17/18 13:55 BP 139/55 06/17/18 13:55 Pulse Ox 92 L 06/17/18 13:55 - Abnormal Lab Findings Abnormal Lab Findings: Abnormal Lab Results 06/16/18 06/17/18 06/17/18 Range/Units 23:22 05:00 05:41 RBC 2.67 L (4.7-6.0) M/mm3 Hgb 8.0 L (13.5-18.0) gm/dL Hct 25.1 L (42.0-52.0) % MCHC 31.5 L (32-36) g/dl RDW 15.5 H (11.5-14.0) % Neutrophils % 86.8 H (42-75.0) % Lymphocytes % 7.3 L (20-51) % Neutrophils # 6.3 H (1.3-6.0) K/mm3 Lymphocytes # 0.53 L (1.5-3.5) k/mm3 PT 17.3 H (9.1-10.7) Seconds INR (Anticoag Therapy) 1.79 H (0.92-1.08) INR BUN (6-23) mg/dL Creatinine (0.4-1.4) mg/dL Est GFR (Non-Af Amer) (60-130) mL/min BUN/Creatinine Ratio (9.0-21.6) Random Glucose (70-110) mg/dL ALT (19-67) U/L Troponin I (0.00-0.10) ng/mL Total Protein (6.2-8.2) gm/dL Albumin (3.4-5.0) gm/dl Urine Protein 30 H (NEGATIVE) mg/dL Urine Glucose (UA) 100 H (NEGATIVE) mg/dL Urine Blood 25 H (NEGATIVE) /ul Urine RBC 10-25 H (0-5) /hpf Ur Epithelial Cells 5-10 H (0-5) /hpf Urine Bacteria 2+ H (NONE) 06/17/18 06/17/18 06/17/18 Range/Units 05:41 10:00 15:53 RBC (4.7-6.0) M/mm3 Hgb (13.5-18.0) gm/dL Hct (42.0-52.0) % MCHC (32-36) g/dl RDW (11.5-14.0) % Neutrophils % (42-75.0) % Lymphocytes % (20-51) % Neutrophils # (1.3-6.0) K/mm3 Lymphocytes # (1.5-3.5) k/mm3 PT (9.1-10.7) Seconds INR (Anticoag Therapy) (0.92-1.08) INR BUN 40 H (6-23) mg/dL Creatinine 1.80 H (0.4-1.4) mg/dL Est GFR (Non-Af Amer) 40 L (60-130) mL/min BUN/Creatinine Ratio 22.2 H (9.0-21.6) Random Glucose 256 H (70-110) mg/dL ALT 12 L (19-67) U/L Troponin I 1.043 H* 1.313 H* (0.00-0.10) ng/mL Total Protein 6.0 L (6.2-8.2) gm/dL Albumin 2.4 L (3.4-5.0) gm/dl Urine Protein (NEGATIVE) mg/dL Urine Glucose (UA) (NEGATIVE) mg/dL Urine Blood (NEGATIVE) /ul Urine RBC (0-5) /hpf Ur Epithelial Cells (0-5) /hpf Urine Bacteria (NONE) - Exam Constitutional: Present: Alert, Cooperative, Well developed, Well nourished, No distress, Elderly, Looks Older than stated age ENT Exam: Present: hearing grossly normal Neck: Present: normal inspection. Absent: lymphadenopathy (R), lymphadenopathy (L) Respiratory: Present: no respiratory distress, no accessory muscle use, rhonchi, No wheezing. Absent: crackles Cardiovascular/Chest: Present: normal peripheral pulses, regular rate, rhythm, no murmur Abdomen: Present: Normal bowel sounds, soft, nontender Extremity: Present: pedal edema - 1+ bilateral Skin Exam: Present: normal color, warm/dry Appearance: Present: appropriate appearance Eye contact: Present: cooperative Thoughts: Present: normal thought pattern, normal mood /affect Assessment/Plan Plan Narrative: 73-year-old male with a past medical history of atrial fibrillation Beatties mellitus type II, retention, GERD, hyperlipidemia, complaints of fever of 103 at home. Associated with productive cough with clear sputum, shortness of breath and malaise. Chest x-ray shows bilateral perihilar and bibasilar heterogeneous opacities. Viral panel was negative. He had a mild leukocytosis and elevated troponin. He received a dose of ceftriaxone and azithromycin in the emergency department. Admitted for pneumonia. Discontinued ceftriaxone and azithromycin and started him on Levaquin due to interactions of the azithromycin with sotalol causing risk of QTC prolongation. - Problems/Diagnosis (1) Pneumonia Problem: Acute Qualifiers: Laterality: bilateral Narrative: Continue with Levaquin start Fang and's incentive spirometer. (2) Fever Problem: Acute Qualifiers: Encounter type: initial encounter Narrative: No new fevers continue to monitor. (3) Hypoxia Problem: Acute Narrative: Oxygen as needed (4) Elevated troponin level Problem: Acute Narrative: Possibly multifactorial secondary to stress and acute illness with pneumonia as well as his CKD. He denies chest pain (5) Diabetes mellitus type 2 in obese Problem: Chronic Narrative: Blood sugars were elevated today due to us not knowing his home insulin regimen. Resume home dose of insulin. Lantus 25 units daily and lispro 25 units every morning before breakfast
[2018-06-17] MEDS: ROSUVASTATIN CALCIUM 20 MG TABLET PO SCH (21:43)
[2018-06-18] MEDS: ACETAMINOPHEN 325 MG TABLET PO PRN (03:51)
[2018-06-18] MEDS: guaiFENesin/DEXTROMETHORPHAN 118 ML BTL PO PRN (03:59)
[2018-06-18] MEDS: HEPARIN SODIUM,PORCINE 5,000 UNITS/ML VIAL SC SCH (05:41)
[2018-06-18 05:47] LABS: Hematocrit 24.9 % (42.0-52.0); Mean Cell Volume 93.6 fl (78-100); Mean Corpuscular Hemoglobin 29.7 pg (27-31); Mean Corpuscular Hgb Conc 31.7 g/dl (32-36); Mean Platelet Volume 10.1 fl (8-11.3); Neutrophil # 5.3 K/mm3 (1.3-6.0); Neutrophil % 81.6 % (42-75.0); Platelet Count 172 K/mm3 (150-450); Red Blood Count 2.66 M/mm3 (4.7-6.0); Red Cell Distribution Width 15.4 % (11.5-14.0); White Blood Count 6.5 K/mm3 (4.0-10.5)
[2018-06-18 06:02] LABS: Albumin * 2.3 gm/dl (3.4-5.0); BUN/Creatinine Ratio 21.5 (9.0-21.6); Bilirubin, Total 0.6 mg/dL (0.0-1.1); Ca. Corrected For Albumin 9.4 mg/dL (8.4-10.2); Calcium * 8.4 mg/dL (7.9-10.9); Carbon Dioxide 24.7 mmol/L (24-32.6); Potassium 3.7 mmol/L (3.4-4.6)
[2018-06-18 06:29] LABS: Prothrombin Time (Patient) 18.7 Seconds (9.1-10.7)
[2018-06-18 06:30] LABS: INR 1.94 INR (0.92-1.08)
[2018-06-18] MEDS: LEVOTHYROXINE SODIUM 25 MCG TABLET PO SCH (07:11)
[2018-06-18] MEDS: INSULIN LISPRO 100 UNITS/ML VIAL SC SCH (07:15)
[2018-06-18] MEDS: SOTALOL HCL 80 MG TABLET PO SCH ×2 (07:17→19:11)
[2018-06-18] MEDS: PANTOPRAZOLE SODIUM 40 MG TABLET.EC PO SCH ×2 (09:06→21:24)
[2018-06-18] MEDS: POTASSIUM CHLORIDE 10 MEQ TABLET.SA PO SCH (09:06)
[2018-06-18] MEDS: FINASTERIDE 5 MG TABLET PO SCH (09:06)
[2018-06-18] MEDS: FUROSEMIDE 40 MG TABLET PO SCH (09:06)
[2018-06-18] MEDS: ASPIRIN 81 MG TABLET.DR PO SCH (09:06)
[2018-06-18] MEDS: KETOROLAC TROMETHAMINE OP SCH ×4 (09:06→21:22)
[2018-06-18] MEDS: INSULIN GLARGINE,HUM.REC.ANLOG 100 UNITS/ML VIAL SC SCH (09:07)
[2018-06-18] MEDS: LEVOFLOXACIN IN DEXTROSE 5 % 750 MG/150 ML BAG IV SCH (10:21)
--- NOTE | 2018-06-18 12:01 | PN ---
Subjective - Date and Time Seen Date: 06/18/18 Time: 10:25 Subjective Narrative: He states he feels better but did not sleep well because he was coughing. Denies shortness of breath. Cough has improved somewhat. Denies chest pain or abdominal pain. Objective - Review of Systems Generalized/Overall Review: Denies: Fever Respiratory: Reports: Cough. Denies: Shortness of Breath Abdominal: Denies: Abdominal Pain - Okay Misc: All systems neg except as marked - Vitals Vitals: Last Vital Signs Temp 36.3 C 06/18/18 09:24 Pulse 60 06/18/18 10:17 Resp 12 06/18/18 09:24 BP 119/46 06/18/18 09:24 Pulse Ox 100 06/18/18 09:24 - Abnormal Lab Findings Abnormal Lab Findings: Abnormal Lab Results 06/17/18 06/18/18 06/18/18 Range/Units 15:53 05:41 05:41 RBC 2.66 L (4.7-6.0) M/mm3 Hgb 8.0 L (13.5-18.0) gm/dL Hct 24.9 L (42.0-52.0) % MCHC 31.7 L (32-36) g/dl RDW 15.4 H (11.5-14.0) % Immature Gran % (Auto) 0.50 H (0.001-0.429) % Neutrophils % 81.6 H (42-75.0) % Lymphocytes % 9.6 L (20-51) % Lymphocytes # 0.63 L (1.5-3.5) k/mm3 PT 18.7 H (9.1-10.7) Seconds INR (Anticoag Therapy) 1.94 H (0.92-1.08) INR BUN (6-23) mg/dL Creatinine (0.4-1.4) mg/dL Est GFR (Non-Af Amer) (60-130) mL/min Random Glucose (70-110) mg/dL ALT (19-67) U/L Troponin I 1.313 H* (0.00-0.10) ng/mL Total Protein (6.2-8.2) gm/dL Albumin (3.4-5.0) gm/dl 06/18/18 Range/Units 05:41 RBC (4.7-6.0) M/mm3 Hgb (13.5-18.0) gm/dL Hct (42.0-52.0) % MCHC (32-36) g/dl RDW (11.5-14.0) % Immature Gran % (Auto) (0.001-0.429) % Neutrophils % (42-75.0) % Lymphocytes % (20-51) % Lymphocytes # (1.5-3.5) k/mm3 PT (9.1-10.7) Seconds INR (Anticoag Therapy) (0.92-1.08) INR BUN 38 H (6-23) mg/dL Creatinine 1.77 H (0.4-1.4) mg/dL Est GFR (Non-Af Amer) 40 L (60-130) mL/min Random Glucose 240 H (70-110) mg/dL ALT 11 L (19-67) U/L Troponin I (0.00-0.10) ng/mL Total Protein 6.0 L (6.2-8.2) gm/dL Albumin 2.3 L (3.4-5.0) gm/dl - Exam Constitutional: Present: Alert, Cooperative, Well developed, Well nourished, No distress, Elderly, Looks Older than stated age ENT Exam: Present: hearing grossly normal Respiratory: Present: lungs clear, no respiratory distress, no accessory muscle use, No wheezing. Absent: crackles, rhonchi Cardiovascular/Chest: Present: normal peripheral pulses, regular rate, rhythm Abdomen: Present: Normal bowel sounds, soft, nontender Extremity: Present: pedal edema - 1+ bilateral Skin Exam: Present: normal color, warm/dry Appearance: Present: appropriate appearance, appropriate insight Eye contact: Present: cooperative Thoughts: Present: normal thought pattern, normal mood /affect Assessment/Plan Plan Narrative: 73-year-old male with a past medical history of atrial fibrillation Beatties mellitus type II, retention, GERD, hyperlipidemia, complaints of fever of 103 at home. Associated with productive cough with clear sputum, shortness of breath and malaise. Chest x-ray shows bilateral perihilar and bibasilar heterogeneous opacities. Viral panel was negative. He had a mild leukocytosis and elevated troponin. He received a dose of ceftriaxone and azithromycin in the emergency department. Admitted for pneumonia. Discontinued ceftriaxone and azithromycin and started him on Levaquin due to interactions of the azithromycin with sotalol causing risk of QTC prolongation. Day 3 of 7 of antibiotics. - Problems/Diagnosis (1) Pneumonia Problem: Acute Qualifiers: Pneumonia type: due to unspecified organism Laterality: bilateral Narrative: Continue Levaquin. Cough, shortness of breath and fevers have improved. No new fevers. Today is day 3 of 7 of antibiotics. Taper off of oxygen as tolerated. (2) Fever Problem: Acute Qualifiers: Encounter type: initial encounter Narrative: This likely secondary to pneumonia. No new fevers. Continue antibiotics. (3) Hypoxia Problem: Acute Narrative: Improving. Taper off of oxygen as tolerated. (4) Elevated troponin level Problem: Acute Narrative: Likely stress-induced due to pneumonia. Denies chest pain. (5) Diabetes mellitus type 2 in obese Problem: Chronic Narrative: Blood sugar is elevated. Resume home regimen of insulin. Insulin glargine 25 units daily and lispro 25 units before breakfast.
[2018-06-18] MEDS ORDERED: CALCIUM CARBONATE 500 MG TAB.CHEW PO PRN (16:01)
[2018-06-18] MEDS: TAMSULOSIN HCL 0.4 MG CAP.SR.24H PO SCH (16:09)
[2018-06-18] MEDS: WARFARIN SODIUM 4 MG TABLET PO SCH (16:10)
[2018-06-18] MEDS: ROSUVASTATIN CALCIUM 20 MG TABLET PO SCH (21:24)
[2018-06-18] MEDS ORDERED: INSULIN GLARGINE,HUM.REC.ANLOG 100 UNITS/ML VIAL SC ONE (22:41)
[2018-06-19] MEDS: guaiFENesin/DEXTROMETHORPHAN 118 ML BTL PO PRN (00:06)
[2018-06-19 05:59] LABS: Hematocrit 24.9 % (42.0-52.0); Mean Cell Volume 92.6 fl (78-100); Mean Corpuscular Hemoglobin 29.7 pg (27-31); Mean Corpuscular Hgb Conc 32.1 g/dl (32-36); Mean Platelet Volume 10.1 fl (8-11.3); Neutrophil # 4.4 K/mm3 (1.3-6.0); Neutrophil % 73.7 % (42-75.0); Platelet Count 186 K/mm3 (150-450); Red Blood Count 2.69 M/mm3 (4.7-6.0); Red Cell Distribution Width 15.2 % (11.5-14.0); White Blood Count 5.9 K/mm3 (4.0-10.5)
[2018-06-19 06:12] LABS: Prothrombin Time (Patient) 22.7 Seconds (9.1-10.7)
[2018-06-19 06:14] LABS: INR 2.37 INR (0.92-1.08)
[2018-06-19 06:17] LABS: Albumin * 2.3 gm/dl (3.4-5.0); BUN/Creatinine Ratio 21.7 (9.0-21.6); Bilirubin, Total 0.6 mg/dL (0.0-1.1); Ca. Corrected For Albumin 9.6 mg/dL (8.4-10.2); Calcium * 8.6 mg/dL (7.9-10.9)
[2018-06-19] MEDS: LEVOTHYROXINE SODIUM 25 MCG TABLET PO SCH (07:01)
[2018-06-19] MEDS: SOTALOL HCL 80 MG TABLET PO SCH (07:49)
[2018-06-19] MEDS: INSULIN LISPRO 100 UNITS/ML VIAL SC SCH (07:50)
[2018-06-19] MEDS: FINASTERIDE 5 MG TABLET PO SCH (08:42)
[2018-06-19] MEDS: POTASSIUM CHLORIDE 10 MEQ TABLET.SA PO SCH (08:42)
[2018-06-19] MEDS: PANTOPRAZOLE SODIUM 40 MG TABLET.EC PO SCH (08:42)
[2018-06-19] MEDS: KETOROLAC TROMETHAMINE OP SCH ×2 (08:42→13:13)
[2018-06-19] MEDS: LEVOFLOXACIN IN DEXTROSE 5 % 750 MG/150 ML BAG IV SCH (08:42)
[2018-06-19] MEDS: ASPIRIN 81 MG TABLET.DR PO SCH (08:43)
[2018-06-19] MEDS: INSULIN GLARGINE,HUM.REC.ANLOG 100 UNITS/ML VIAL SC SCH (08:43)
[2018-06-19] MEDS: FUROSEMIDE 40 MG TABLET PO SCH (08:47)
--- NOTE | 2018-06-19 12:11 | DS ---
Description of Stay: 73-year-old male admitted for bronchopneumonia that presented with productive cough and fever of several days duration was evaluated at bedside and was found to be afebrile and in no acute distress. Patient has been treated with IV antibiotics and IV hydration for his pneumonia and has responded favorably. His cough has improved and there has been no recurrence of fever. Patient is also saturating adequately on room air and reports feeling better than when he arrived. Labs demonstrate a complete resolution of leukocytosis and improvement and renal function. Patient's troponins which were live originally elevated upon admission have been on a downward trend and is nearly normal, he denies any chest pain or chest discomfort. Given these findings patient will be discharged home with additional days of oral antibiotics and instructions to follow-up with his PCP. He is to resume his routine meds. Procedures Performed: none Results and Findings: Pending Mircobiology Results 06/16/18 16:15 Blood Blood Culture - Preliminary NO GROWTH AFTER 48 HOURS 06/16/18 16:00 Blood Blood Culture - Preliminary NO GROWTH AFTER 48 HOURS Lab Pending Results 06/16/18 16:00: WBC 10.9 H, RBC 3.05 L, Hgb 9.3 L, Hct 28.7 L, MCV 94.1, MCH 30.5, MCHC 32.4, RDW 15.6 H, Plt Count 200, MPV 9.3, Immature Gran % (Auto) 0.50 H, Immature Gran # (Auto) 0.06 H, Neutrophils % 86.0 H, Lymphocytes % 6.2 L, Monocytes % 6.6, Eosinophils % 0.2, Basophils % 0.5, Nucleated RBC % 0.0, Neutrophils # 9.4 H, Lymphocytes # 0.68 L, Monocytes # 0.7, Eosinophils # 0.0, Absolute Basophils 0.1 06/16/18 16:00: PT 17.2 H, INR (Anticoag Therapy) 1.78 H 06/16/18 16:00: Sodium 138, Plasma Sodium 141, Potassium 4.3, Chloride 102, Carbon Dioxide 25.2, Anion Gap 15.1 H, BUN 43 H D, Creatinine 1.86 H, Est GFR (Non-Af Amer) 38 L D, BUN/Creatinine Ratio 23.1 H, Random Glucose 268 H, Calcium 8.7, Calcium Adj for Albumin 9.3, Total Bilirubin 0.9, AST 23, ALT 16 L, Alkaline Phosphatase 76, Troponin I 1.309 H*, Total Protein 7.1, Albumin 2.9 L 06/16/18 16:00: Lactic Acid, Venous 1.9 06/16/18 16:00: Influenza Type A Ag Negative, Influenza Type B Ag Negative 06/16/18 17:00: Chlamy pneumoniae PCR Not detected, Adenovirus (PCR) Not detected, B. pertussis DNA (PCR) Not detected, Coronavirus OC43 (PCR) Not detected, Coronavirus HKU1 (PCR) Not detected, Coronavirus 229E (PCR) Not detected, Coronavirus NL63 (PCR) Not detected, Human Metapneumovir PCR Not detected, Influenza A (H1) PCR Not detected, Influenza A (H1N1) PCR Not detected, Influenza A (H3) PCR Not detected, Influenza B (RT-PCR) Not detected, M. pneumoniae (PCR) Not detected, Parainfluenza 1 (PCR) Not detected, Parainfluenza 2 (PCR) Not detected, Parainfluenza 3 (PCR) Not detected, Parainfluenza 4 (PCR) Not detected, RSV (PCR) Not detected, Rhinovirus (PCR) Not detected 06/16/18 23:22: Urine Color Yellow, Urine Appearance Clear, Urine pH 6.0, Ur Specific [place] 1.020, Urine Protein 30 H, Urine Glucose (UA) 100 H, Urine Ketones Negative, Urine Blood 25 H, Urine Nitrate Negative, Urine Bilirubin Negative, Prot Sulfosalicylic Acd 1+, Urine Urobilinogen Normal, Ur Leukocyte Esterase Negative, Urine RBC 10-25 H, Urine WBC 0-5, Ur Epithelial Cells 5-10 H, Urine Bacteria 2+ H, Urine Culture Comments No culture indicated 06/17/18 05:00: PT 17.3 H, INR (Anticoag Therapy) 1.79 H 06/17/18 05:41: WBC 7.3 D, RBC 2.67 L, Hgb 8.0 L, Hct 25.1 L, MCV 94.0, MCH 29.6, MCHC 31.5 L, RDW 15.5 H, Plt Count 168, MPV 10.1, Immature Gran % (Auto) 0.40, Immature Gran # (Auto) 0.03, Neutrophils % 86.8 H, Lymphocytes % 7.3 L, Monocytes % 5.1, Eosinophils % 0.0, Basophils % 0.4, Nucleated RBC % 0.0, Neutrophils # 6.3 H, Lymphocytes # 0.53 L, Monocytes # 0.4, Eosinophils # 0.0, Absolute Basophils 0.0 06/17/18 05:41: Sodium 139, Plasma Sodium 141, Potassium 3.8, Chloride 106, Carbon Dioxide 24.5, Anion Gap 12.3, BUN 40 H, Creatinine 1.80 H, Est GFR (Non- Af Amer) 40 L, BUN/Creatinine Ratio 22.2 H, Random Glucose 256 H, Calcium 8.1, Calcium Adj for Albumin 9.1, Total Bilirubin 0.6, AST 18, ALT 12 L, Alkaline Phosphatase 65, Total Protein 6.0 L, Albumin 2.4 L 06/17/18 10:00: Troponin I 1.043 H* 06/17/18 15:53: Troponin I 1.313 H* 06/18/18 05:41: PT 18.7 H, INR (Anticoag Therapy) 1.94 H 06/18/18 05:41: WBC 6.5, RBC 2.66 L, Hgb 8.0 L, Hct 24.9 L, MCV 93.6, MCH 29.7, MCHC 31.7 L, RDW 15.4 H, Plt Count 172, MPV 10.1, Immature Gran % (Auto) 0.50 H, Immature Gran # (Auto) 0.03, Neutrophils % 81.6 H, Lymphocytes % 9.6 L, Monocytes % 7.6, Eosinophils % 0.2, Basophils % 0.5, Nucleated RBC % 0.0, Neutrophils # 5.3, Lymphocytes # 0.63 L, Monocytes # 0.5, Eosinophils # 0.0, Absolute Basophils 0.0 06/18/18 05:41: Sodium 136, Plasma Sodium 138, Potassium 3.7, Chloride 103, Carbon Dioxide 24.7, Anion Gap 12.0, BUN 38 H, Creatinine 1.77 H, Est GFR (Non- Af Amer) 40 L, BUN/Creatinine Ratio 21.5, Random Glucose 240 H, Calcium 8.4, Calcium Adj for Albumin 9.4, Total Bilirubin 0.6, AST 16, ALT 11 L, Alkaline Phosphatase 60, Total Protein 6.0 L, Albumin 2.3 L 06/18/18 15:52: Troponin I 0.819 H* 06/18/18 21:42: Troponin I 0.723 H* 06/19/18 05:40: PT 22.7 H, INR (Anticoag Therapy) 2.37 H 06/19/18 05:40: WBC 5.9, RBC 2.69 L, Hgb 8.0 L, Hct 24.9 L, MCV 92.6, MCH 29.7, MCHC 32.1, RDW 15.2 H, Plt Count 186, MPV 10.1, Immature Gran % (Auto) 0.50 H, Immature Gran # (Auto) 0.03, Neutrophils % 73.7, Lymphocytes % 14.7 L, Monocytes % 9.1 H, Eosinophils % 1.5, Basophils % 0.5, Nucleated RBC % 0.0, Neutrophils # 4.4, Lymphocytes # 0.87 L, Monocytes # 0.5, Eosinophils # 0.1, Absolute Basophils 0.0 06/19/18 05:40: Sodium 141, Plasma Sodium 142, Potassium 4.0, Chloride 105, Carbon Dioxide 27.0, Anion Gap 13.0, BUN 36 H, Creatinine 1.66 H, Est GFR (Non- Af Amer) 43 L, BUN/Creatinine Ratio 21.7 H, Random Glucose 179 H, Calcium 8.6, Calcium Adj for Albumin 9.6, Total Bilirubin 0.6, AST 22, ALT 12 L, Alkaline Phosphatase 57, Total Protein 6.0 L, Albumin 2.3 L Discharge Location: Home Disposition: Home self-care Condition: Fair Discharge Activity: Activity as tolerated Discharge Diet: General/regular food Referrals: Alaina Arauz MD [Primary Care Provider] - Additional Patient Instructions (free text): -Please make TCM appointment unless [facility] discharge. Thank you! Francine @ [phone]. Prescriptions (Any new or edited meds): Levofloxacin [Levaquin] 750 mg PO DAILY 5 Days #5 tab Complete Home Medications List: Complete Home Medication List: Nitroglycerin [Nitrostat] 0.4 mg SUBLINGUAL [id number] PRN 12/12/15 Aspirin [Aspirin Enteric Coated] 81 mg PO DAILY 03/16/17 acetaminophen 325 mg tablet 650 mg PO Q4H PRN tab 10/17/18 ketorolac 0.5 % eye drops 1 drp OP QID 01/13/18 atorvastatin 40 mg tablet 40 mg PO DAILY #90 tab 05/10/18 guaifenesin ER 1,200 mg tablet, extended release 12 hr 1,200 mg PO Q12H #180 tab 05/10/18 insulin syringe U-100 with needle 1 mL 31 gauge x 08/12" See Dose Instructions .ROUTE .MEDSUPPLY #300 ea 05/10/18 levothyroxine 25 mcg capsule 25 mcg PO DAILY #90 cap 05/10/18 potassium chloride ER 10 mEq tablet,extended release(part/cryst) 10 meq PO DAILY #90 tab 05/10/18 sotalol 80 mg tablet 80 mg PO Q12H #180 tab 05/10/18 tamsulosin 0.4 mg capsule 0.4 mg PO DAILY #90 cap 05/10/18 furosemide 40 mg tablet 40 mg PO DAILY #30 tab 05/24/18 finasteride 5 mg tablet 5 mg PO DAILY #90 tab 05/27/18 Warfarin Sodium 4 mg PO DAILY 06/04/18 Insulin NPH Hum/Reg Insulin Hm [Novolin 70-30 Flexpen] 100 unit SQ DAILY 06/16/18 Omeprazole 40 mg PO BID 06/16/18 Levofloxacin [Levaquin] 750 mg PO DAILY 5 Days #5 tab 06/19/18
[2018-06-19 13:03] VITALS: BP 137/53
== END 2018-06-19 13:25 | disposition home or self-care (01) | DRG 195 ==
LOC: ER 15:34 → MS 17:29
PROVIDERS: ADMIT Internal Medicine; ATTEND Internal Medicine
DX: R94.4 Abnormal results of kidney function studies; Z79.4 Long term (current) use of insulin; R09.02 Hypoxemia; E66.9 Obesity, unspecified; N18.3 Chronic kidney disease, stage 3 (moderate); J18.0 Bronchopneumonia, unspecified organism; Z79.01 Long term (current) use of anticoagulants; I10 Essential (primary) hypertension; E11.319 Type 2 diabetes mellitus with unspecified diabetic retinopathy without macular edema; E11.22 Type 2 diabetes mellitus with diabetic chronic kidney disease; I25.10 Atherosclerotic heart disease of native coronary artery without angina pectoris; I48.2 Chronic atrial fibrillation; K21.9 Gastro-esophageal reflux disease without esophagitis
CPT/HCPCS: 36415; 70450; 71020; 71046; 80053; 81001; 83605; 84484; 85025; 85610; 87040; 87081; 87400; 87449; 87633; 93005; 94640; 94664; 96361; 96365; 96367; 99285; J0131